=== PATIENT | female | born 1955 | race Caucasian/White ===

== ENCOUNTER → 2016-08-23 | Outpatient (CLI) | payer BC ==
[~2016-08-23] MED LIST: ACHD5005 PO; ASPI-586 PO; BUPR-42 PO; CATHETER FLUSH 10 ML SYR IV PRN; CLIN300C3 PO; DICL75TA2 PO; HYDR-3812 PO; IOHEXOL 350 MG/ML 100 ML (OMNIPAQUE 350) VIAL IV ONE; KETO10TA77 PO; NS 100 ML (IVPB) BAG IV ONE; SERT100T8 PO; SERT25TA PO; SULF-222 PO; TRAM50TA2 PO
[2016-08-23 11:42] LABS: BLOOD UREA NITROGEN 13 MG/DL (7-18); BUN/CREATININE RATIO 19; GFR ESTIMATED > 60
--- NOTE | 2016-08-23 15:40 | Diagnostic Imaging Report ---
PROCEDURE: CT chest with contrast only. TECHNIQUE: Multiple contiguous axial images were obtained through the chest after administration of intravenous contrast. INDICATION: Followup pulmonary nodules. COMPARISON: CT chest of 11/04/2015 and 07/15/2015. FINDINGS: Lungs and airway: No endoluminal lesion in the trachea or central bronchi. No pulmonary mass or consolidation. Right apical subpleural nodule has a more linear configuration and measures approximately 4 mm in size on today's examination. Left lower lobe 5 mm nodule has not significantly changed. No new indeterminate pulmonary nodules. Calcified left lower lobe pulmonary granulomas are similar. Pleura: No pleural effusion or pneumothorax. Heart and mediastinum: Thyroid is normal. No supraclavicular or axillary lymphadenopathy. No mediastinal, hilar, or juxtaphrenic lymphadenopathy. Heart is normal in size without pericardial effusion. Calcified left hilar lymph nodes are unchanged and compatible with remote granulomatous infection. Normal caliber thoracic aorta. Upper abdomen: Cholecystectomy. Hypoattenuation of the liver which could be seen with hepatic steatosis. No acute abnormality in the upper abdomen. Musculoskeletal: No concerning focal osseous lesions in the thorax. IMPRESSION: 1. Right apical pulmonary nodule is more linear in configuration and likely represents a focus of subpleural atelectasis. Noncalcified left lower lobe pulmonary nodule is unchanged at 5 mm, and stable since 07/15/2015 examination. Given stability of greater than one year and small size, these nodules require no additional dedicated followup imaging. 2. Remote granulomatous infection. Dictated by: Dictated on workstation # [id number]
--- NOTE | 2016-08-24 10:06 | Diagnostic Imaging Report ---
Bilateral screening mammogram The current study was also evaluated with a Computer Aided Detection (CAD) system. Indication: Screening. No current complaints stated on the questionnaire. COMPARISON: 03/01/10. FINDINGS: The breasts are composed of scattered fibroglandular densities. A 7 mm medial left breast nodule stable from 2009 is seen compatible with benign etiology. No mass, architectural distortion or suspicious cluster of calcifications seen. Allowing for technique and positional differences, no suspicious change is seen. IMPRESSION: No significant change. ACR BI-RADS Category 2: Benign findings. Result letter will be mailed to the patient. Note: At least 10% of breast cancer is not imaged by mammography. Dictated by: Dictated on workstation # [id number]
== END ==
LOC: RAD 10:57
PROVIDERS: ATTEND Family Medicine
DX: Z12.31 Encounter for screening mammogram for malignant neoplasm of breast (principal); R91.1 Solitary pulmonary nodule
CPT/HCPCS: 36415; 71260; 77067; 82565; 84520

== ENCOUNTER → 2017-01-28 | Outpatient (CLI) | payer BC ==
[~2017-01-28] MED LIST changes: -CATHETER FLUSH 10 ML SYR IV PRN; -IOHEXOL 350 MG/ML 100 ML (OMNIPAQUE 350) VIAL IV ONE; -NS 100 ML (IVPB) BAG IV ONE
--- NOTE | 2017-01-28 09:20 | Diagnostic Imaging Report ---
3 views of the lumbar spine. INDICATION: Back pain. FINDINGS: There is straightening of the lordotic curvature. The vertebral body heights are preserved. There is significant disc height loss at L4/L5 and L5/S1 level. Multilevel anterior osteophytes seen. No posterior osteophytes are identified. There is vacuum phenomenon at L4/L5 and L5/S1. There is a vacuum phenomenon and mild degenerative changes at the SI joints. Surgical clips in the upright abdomen seen. IMPRESSION: Prominent degenerative changes in the lower lumbar spine. Dictated by: Dictated on workstation # [id number]
--- NOTE | 2017-01-28 09:29 | Diagnostic Imaging Report ---
EXAMINATION: Three views of the sacroiliac joints. INDICATION: Back pain. FINDINGS: There are prominent degenerative changes in the lower lumbar spine discs with vacuum phenomenon. The SI joints demonstrate degenerative changes, worse on the right side, with vacuum phenomenon and sclerotic changes. No fracture or dislocation is seen. IMPRESSION: Degenerative changes in the SI joints, more on the right side. Dictated by: Dictated on workstation # [id number]
== END ==
LOC: RAD 08:26
PROVIDERS: ATTEND Family Medicine
DX: M47.816 Spondylosis without myelopathy or radiculopathy, lumbar region (principal); M47.818 Spondylosis without myelopathy or radiculopathy, sacral and sacrococcygeal region
CPT/HCPCS: 72100; 72202

== ENCOUNTER → 2017-08-23 | Outpatient (CLI) | payer BC ==
[~2017-08-23] MED LIST changes: -HYDR-3812 PO
--- NOTE | 2017-08-23 13:40 | Diagnostic Imaging Report ---
INDICATION: Routine screening. Comparison is made with prior study from 08/23/2016. The current study was also evaluated with a Computer Aided Detection (CAD) system. FINDINGS: Scattered fibroglandular densities are identified bilaterally. Benign nodular density in the medial left breast is stable. No spiculated mass or malignant-appearing microcalcifications are seen. The axillae are unremarkable. IMPRESSION: No mammographic features suspicious for malignancy are identified. ACR BI-RADS Category 2: Benign findings. Result letter will be mailed to the patient. Note: At least 10% of breast cancer is not imaged by mammography. Dictated by: Dictated on workstation # [id number]
--- NOTE | 2017-08-23 15:27 | Diagnostic Imaging Report ---
INDICATION: Family history of ovarian carcinoma. TECHNIQUE: Multiple real-time grayscale images were obtained in the pelvis in various projections endovaginally. FINDINGS: The uterus measures 8.0 x 4.7 cm. There appears to be a fibroid in the anterior myometrium adjacent to the endometrium measuring 1.9 cm in diameter. This does abut the fundal endometrium and obscures the endometrium. There also appears to be a hyperechoic mass in the posterior myometrium approximately 1.6 cm in diameter suggestive of a second fibroid. Endometrium is 4 mm in thickness. The right and left ovaries are nonvisualized. No adnexal mass or free fluid is seen. IMPRESSION: Fibroid uterus with fibroids obscuring the fundal endometrium. No other significant abnormality is seen. Dictated by: Dictated on workstation # [id number]
== END ==
LOC: RAD 09:47
PROVIDERS: ATTEND Family Medicine
DX: Z12.31 Encounter for screening mammogram for malignant neoplasm of breast (principal); D25.9 Leiomyoma of uterus, unspecified; Z80.41 Family history of malignant neoplasm of ovary
CPT/HCPCS: 76830; 76856; 77067

== ENCOUNTER 2021-04-30 11:58 | Emergency (ER) | payer BC ==
[~2021-04-30] VITALS: Ht 165 cm; Wt 190.0 kg
[~2021-04-30 11:58] MED LIST changes: +SERT-414 PO
[2021-04-30] MEDS ORDERED: LACTATED RINGERS 1,000 ML IV ONE (12:15)
--- NOTE | 2021-04-30 12:54 | ED General ---
General Stated Complaint: COVID POSITIVE/SOB Source of Information: Patient History of Present Illness Date Seen by Provider: Apr 30, 2021 Time Seen by Provider: 12:10 Initial Comments PT AND ARRIVE VIA POV FROM HOME BOTH ARE BEING SEEN FOR SAME BOTH REPORT THEY HAD POSITIVE HOME COVID-19 TESTS THIS WEEK, NEITHER HAVE HAD COVID-19 VACCINE PT STATES SHE BEGAN GETTING SICK ON SATURDAY, STARTED GETTING SICK ON SATURDAY PT C/O FEVER UP TO 100 C/O HEADACHE C/O BODY ACHES C/O NON-PRODUCTIVE COUGH C/O SHORTNESS OF BREATH C/O DECREASED TASTE C/O FATIGUE AND GENERALIZED WEAKNESS NO NAUSEA/VOMITING/DIARRHEA PT HAS COPD AND SMOKES 2 PPD, IN ADDITION TO SMOKING MARIJUANA HAVE NOT SOUGHT CARE UNTIL TODAY HAVE NOT TAKEN ANYTHING FOR SYMPTOMS PCP: WAS DR. YEE, HAS NOT ESTABLISHED WITH NEW DR SINCE SHE LEFT THE PRACTICE. Allergies and Home Medications Allergies Coded Allergies: No Known Drug Allergies (Unverified , 04/26/13) Patient Home Medication List Bupropion HCl (Wellbutrin Xl) 150 Mg Tab.er.24h, 150 MG PO DAILY, (Reported) Entered as Reported by: JASWANT RODRIGUEZ on 11/23/15925 Hydrocodone Bit/Acetaminophen (Lortab 5 Mg Tablet) 1 Each Tablet, 1-2 EACH PO Q4H PRN for PAIN Prescribed by: MARTHA PRICE on 12/02/15 1157 Sertraline HCl (Sertraline HCl) 100 Mg Tablet, 100 MG PO DAILY, (Reported) Entered as Reported by: JASWANT RODRIGUEZ on 11/23/15925 Tramadol Hcl (Tramadol Hcl) 50 Mg Tablet, 50 MG PO Q8H PRN for PAIN, (Reported) Entered as Reported by: LUPE RAMIREZ on 11/23/141941 Review of Systems Review of Systems Constitutional: see HPI, fever, malaise, weakness EENTM: see HPI Respiratory: see HPI, cough, short of breath Cardiovascular: no symptoms reported; No chest pain Gastrointestinal: no symptoms reported; No abdominal pain, No diarrhea, No nausea, No vomiting Genitourinary: no symptoms reported Musculoskeletal: see HPI (BODY ACHES) Skin: no symptoms reported Psychiatric/Neurological: See HPI, Headache Hematologic/Lymphatic: No Symptoms Reported Immunological/Allergic: no symptoms reported Past Jrawrte-Iosvhp-Kxkgwh Hx Patient Social History Tobacco Use?: Yes Substance use?: Yes Substance type: Marijuana Alcohol Use?: Yes Alcohol Frequency: Several times a month Immunizations Up To Date Tetanus Booster (TDap): More than 5yrs Past Medical History Surgeries: Yes Gallbladder, Tubal Ligation Respiratory: Yes COPD Cardiac: No Neurological: No Reproductive Disorders: No CHIPPER History: Menopausal Genitourinary: No Gastrointestinal: Yes (S/-P ELIOT) Gall Bladder Disease Musculoskeletal: Yes Chronic Back Pain Endocrine: No HEENT: No Cancer: No Psychosocial: Yes Anxiety, Depression Integumentary: No Blood Disorders: No Physical Exam Vital Signs Capillary Refill : Height, Weight, BMI Height: 5'5.00" Weight: 223lbs. 0.0oz. [id number]; 37.1 BMI Method: Focused Exam Lactate Level 04/30/21 12:39: Lactic Acid Level 1.60 Lactic Acid Level Laboratory Tests Test 04/30/21 12:39 Lactic Acid Level 1.60 MMOL/L (0.50-2.00) Progress/Results/Core Measures Suspected Sepsis SIRS Temperature: Pulse: Respiratory Rate: Laboratory Tests 04/30/21 12:39: White Blood Count 4.8 Blood Pressure / Mean: 04/30/21 12:39: Lactic Acid Level 1.60 Laboratory Tests 04/30/21 12:39: Platelet Count 134 04/30/21 13:35: Creatinine 0.64, INR Comment 0.9, Total Bilirubin 0.3 Results/Orders Lab Results Laboratory Tests Test 04/30/21 12:12 04/30/21 12:39 04/30/21 13:35 Range/Units Influenza Type A (RT-PCR) Not Detected Not Detecte Influenza Type B (RT-PCR) Not Detected Not Detecte SARS-CoV-2 RNA (RT-PCR) Detected H Not Detecte White Blood Count 4.8 4.3-11.0 10^3/uL Red Blood Count 4.34 3.80-5.11 10^6/uL Hemoglobin 13.3 11.5-16.0 g/dL Hematocrit 41 35-52 % Mean Corpuscular Volume 94 80-99 fL Mean Corpuscular Hemoglobin 31 25-34 pg Mean Corpuscular Hemoglobin Concent 33 32-36 g/dL Red Cell Distribution Width 13.5 10.0-14.5 % Platelet Count 134 130-400 10^3/uL Mean Platelet Volume 10.9 9.0-12.2 fL Immature Granulocyte % (Auto) 0 % Neutrophils (%) (Auto) 69 42-75 % Lymphocytes (%) (Auto) 24 12-44 % Monocytes (%) (Auto) 7 0-12 % Eosinophils (%) (Auto) 0 0-10 % Basophils (%) (Auto) 0 0-10 % Neutrophils # (Auto) 3.3 1.8-7.8 10^3/uL Lymphocytes # (Auto) 1.1 1.0-4.0 10^3/uL Monocytes # (Auto) 0.3 0.0-1.0 10^3/uL Eosinophils # (Auto) 0.0 0.0-0.3 10^3/uL Basophils # (Auto) 0.0 0.0-0.1 10^3/uL Immature Granulocyte # (Auto) 0.0 0.0-0.1 10^3/uL Percent Immature Platelet Fraction 4.7 0.0-7.6 % Erythrocyte Sedimentation Rate 18 0-30 MM/HR Lactic Acid Level 1.60 0.50-2.00 MMOL/L Prothrombin Time 12.4 12.2-14.7 SEC INR Comment 0.9 0.8-1.4 Activated Partial Thromboplast Time 36 H 24-35 SEC D-Dimer 0.39 0.00-0.49 UG/ML Sodium Level 137 135-145 MMOL/L Potassium Level 3.5 L 3.6-5.0 MMOL/L Chloride Level 103 98-107 MMOL/L Carbon Dioxide Level 24 21-32 MMOL/L Anion Gap 10 5-14 MMOL/L Blood Urea Nitrogen 10 7-18 MG/DL Creatinine 0.64 0.60-1.30 MG/DL Estimat Glomerular Filtration Rate 93 BUN/Creatinine Ratio 16 Glucose Level 97 70-105 MG/DL Calcium Level 8.2 L 8.5-10.1 MG/DL Corrected Calcium 8.5 8.5-10.1 MG/DL Magnesium Level 1.9 1.6-2.4 MG/DL Total Bilirubin 0.3 0.1-1.0 MG/DL Aspartate Amino Transf (AST/SGOT) 25 5-34 U/L Alanine Aminotransferase (ALT/SGPT) 11 0-55 U/L Alkaline Phosphatase 80 40-136 U/L Lactate Dehydrogenase 279 H 125-220 U/L Total Creatine Kinase 88 29-168 U/L Creatine Kinase MB 1.2 <6.6 NG/ML Myoglobin 51.8 10.0-92.0 NG/ML Troponin I < 0.028 <0.028 NG/ML C-Reactive Protein High Sensitivity 4.07 H 0.00-0.50 MG/DL B-Type Natriuretic Peptide 12.7 <100.0 PG/ML Total Protein 6.0 L 6.4-8.2 GM/DL Albumin 3.6 3.2-4.5 GM/DL Procalcitonin 0.03 <0.10 NG/ML My Orders Orders - KAIA LEARY DO Ed Iv/Invasive Line Start (04/30/21 12:10) Ekg Tracing (04/30/21 12:10) O2 (04/30/21 12:10) Monitor-Rhythm Ecg Trace Only (04/30/21 12:10) Bnp Edwar (04/30/21 12:10) Cbc With Automated Diff (04/30/21 12:10) Comprehensive Metabolic Panel (04/30/21 12:10) Creatine Kinase (04/30/21 12:10) Creatine Kinase Mb (04/30/21 12:10) Hs C Reactive Protein (04/30/21 12:10) Lactic Acid Analyzer (04/30/21 12:10) Magnesium (04/30/21 12:10) Procalcitonin (Pct) (04/30/21 12:10) Protime With Inr (04/30/21 12:10) Partial Thromboplastin Time (04/30/21 12:10) Ua Culture If Indicated (04/30/21 12:10) Blood Culture (04/30/21 12:10) Erythrocyte Sedimentation Rate (04/30/21 12:10) Myoglobin Serum (04/30/21 12:10) Troponin I Edwar (04/30/21 12:10) Chest 1 View, Ap/Pa Only (04/30/21 12:10) Fibrin Degradation Products (04/30/21 12:10) LDH (04/30/21 12:10) Urine Culture (04/30/21 12:10) Ed Iv/Invasive Line Start (04/30/21 12:10) Ed Iv/Invasive Line Start (04/30/21 12:10) Vital Signs Adult Sepsis Patie Q15M (04/30/21 12:10) O2 (04/30/21 12:10) Remove Rings In Anticipation O (04/30/21 12:10) Ed Iv/Invasive Line Start (04/30/21 12:10) Lactated Ringers (Lr 1000 Ml Iv Solution (04/30/21 12:15) Covid-19 External Lab Results (04/30/21 12:15) Covid 19 Inhouse Test (04/30/21 12:40) Influenza A And B By Pcr (04/30/21 12:40) Isolation Central Supply Req (04/30/21 12:40) Dexamethasone Injection (Decadron Inje (04/30/21 12:45) Bamlanivimab (Non Form) (Bamlanivimab (N (04/30/21 15:00) Epinephrine 1 Mg Injection (Adrenalin I (04/30/21 15:00) Diphenhydramine Injection (Benadryl Inje (04/30/21 15:00) Ondansetron Injection (Zofran Injectio (04/30/21 15:00) Acetaminophen Tablet (Tylenol Tablet) (04/30/21 15:00) Medications Given in ED Current Medications Medications Dose Ordered Sig/Jj Route Start Time Stop Time Status Last Admin Dose Admin Lactated Ringer's 1,000 ml @ 0 mls/hr Q0M ONCE IV 04/30/21 12:15 04/30/21 12:16 DC 04/30/21 12:39 1,000 MLS/HR Vital Signs/I&O Capillary Refill : Diagnostic Imaging Comments CXR--PER RADIOLOGIST REPORT AT 1342 Findings: No focal alveolar consolidation, body habitus limits detail. Heart borders and diaphragms visualized, upper limits heart size stable. There is some scattered calcified benign granulomatous residua chronic. Impression: Limited by body habitus, no focal infiltrate, effusion, pneumothorax or change identified. Benign left lower lobe calcified granuloma, chronic. Reviewed: Reviewed by Me Departure Impression Primary Impression: COVID-19 virus infection Additional Impression: COPD (chronic obstructive pulmonary disease) Disposition: 01 HOME, SELF-CARE Condition: Stable Departure-Patient Inst. Decision time for Depature: 14:45 Referrals: CHRISTEL YEE MD (PCP/Family) Primary Care Physician Patient Instructions: Chronic Obstructive Pulmonary Disease (COPD), Including Emphysema, COVID-19 (DC), Preventing the Spread of an Infectious Disease, Bamlanivimab and Etesevimab FDA Fact Sheet Add. Discharge Instructions: TYLENOL AND MOTRIN NEEDED FOR PAIN OR FEVER USE YOUR INHALER OR NEBULIZER PRESCRIBED USE HOME OXYGEN NEEDED MUCINEX DM FOR COUGH LOTS OF CLEAR LIQUIDS QUARANTINE FOR AN ADDITIONAL 10 DAYS RETURN TO ER IF SYMPTOMS WORSEN Scripts Benzonatate (TESSALON PERLES) 100 Mg Capsule 200 MG PO TID, #50 CAP Prov: KAIA LEARY DO 04/30/21 Dexamethasone (Decadron) 6 Mg Tablet 6 MG PO DAILY, #10 TAB Prov: KAIA LEARY DO 04/30/21 Doxycycline Hyclate (Doxycycline Hyclate) 100 Mg Tablet 100 MG PO BID, #20 TAB 0 Refills Prov: KAIA LEARY DO 04/30/21 KAIA LEARY DO Apr 30, 2021 12:54
[2021-04-30 12:58] LABS: BASOPHILS % (AUTO) 0 % (0-10); EOSINOPHILS % (AUTO) 0 % (0-10); MEAN CORPUSCULAR HEMOGLOBIN 31 pg (25-34); MEAN CORPUSCULAR HGB CONC 33 g/dL (32-36)
[2021-04-30 12:59] LABS: HEMATOCRIT 41 % (35-52); HEMOGLOBIN 13.3 g/dL (11.5-16.0); LYMPHOCYTES # (AUTO) 1.1 10^3/uL (1.0-4.0); LYMPHOCYTES % (AUTO) 24 % (12-44); MEAN CORPUSCULAR VOLUME 94 fL (80-99); MEAN PLATELET VOLUME 10.9 fL (9.0-12.2); MONOCYTES # (AUTO) 0.3 10^3/uL (0.0-1.0); MONOCYTES % (AUTO) 7 % (0-12); NEUTROPHILS # (AUTO) 3.3 10^3/uL (1.8-7.8); NEUTROPHILS % (AUTO) 69 % (42-75); PLATELET COUNT 134 10^3/uL (130-400); WHITE BLOOD COUNT 4.8 10^3/uL (4.3-11.0)
[2021-04-30 13:20] LABS: ERYTHROCYTE SEDIMENTATION RATE 18 MM/HR (0-30)
--- NOTE | 2021-04-30 13:21 | Diagnostic Imaging Report ---
Indication: COVID patient, shortness of air. Compared: 09/27/2015 Findings: No focal alveolar consolidation, body habitus limits detail. Heart borders and diaphragms visualized, upper limits heart size stable. There is some scattered calcified benign granulomatous residua chronic. Impression: Limited by body habitus, no focal infiltrate, effusion, pneumothorax or change identified. Benign left lower lobe calcified granuloma, chronic. Dictated by: Dictated on workstation # [id number]
[2021-04-30 13:58] LABS: ALBUMIN 3.6 GM/DL (3.2-4.5); CHLORIDE 103 MMOL/L (98-107); POTASSIUM 3.5 MMOL/L (3.6-5.0); SODIUM 137 MMOL/L (135-145)
[2021-04-30 13:59] LABS: CALCIUM 8.2 MG/DL (8.5-10.1); FIBRIN DEGRADATION PRODUCTS 0.39 UG/ML (0.00-0.49); INR 0.9 (0.8-1.4); PROTHROMBIN TIME PATIENT 12.4 SEC (12.2-14.7)
[2021-04-30 14:00] LABS: GLUCOSE 97 MG/DL (70-105)
[2021-04-30 14:01] LABS: CARBON DIOXIDE 24 MMOL/L (21-32)
[2021-04-30 14:02] LABS: BILIRUBIN,TOTAL 0.3 MG/DL (0.1-1.0)
[2021-04-30 14:04] LABS: ALKALINE PHOSPHATASE 80 U/L (40-136); CREATININE SERUM 0.64 MG/DL (0.60-1.30); GFR ESTIMATED 93
[2021-04-30 14:05] LABS: BUN/CREATININE RATIO 16
[2021-04-30 14:07] LABS: ALANINE AMINOTRANSFERASE 11 U/L (0-55); MAGNESIUM 1.9 MG/DL (1.6-2.4)
[2021-04-30 14:08] LABS: CREATINE KINASE 88 U/L (29-168)
[2021-04-30 14:17] LABS: CREATINE KINASE MB 1.2 NG/ML (<6.6)
[2021-04-30] MEDS ORDERED: EPINEPHrine INJECTION 1 MG/ML AMP IM PRN (15:00)
[2021-04-30] MEDS ORDERED: BAMLANIVIMAB 700 MG/ETESEVIMAB 1,400 MG IN NS IV ONE ×3 (15:00)
[2021-04-30] MEDS ORDERED: ONDANSETRON 4 MG/2 ML (SDV) Z0FRAN IV PRN (15:00)
[2021-04-30] MEDS ORDERED: diphenhydrAMINE 50 MG/ML INJ (BENADRYL) IV PRN (15:00)
[2021-04-30] MEDS ORDERED: ACETAMINOPHEN 500 MG TAB (TYLENOL) PO PRN (15:00)
[2021-04-30] MEDS ORDERED: DEXA6TAB6 PO (15:05)
[2021-04-30] MEDS ORDERED: BENZ100C18 PO (15:05)
[2021-04-30] MEDS ORDERED: DOXY100T2 PO (15:05)
[2021-04-30] MEDS ORDERED: BENZONATATE 100 MG (TESSALON) CAPSULE PO SCH (16:15)
[2021-04-30] MEDS ORDERED: IBUPROFEN 800 MG (MOTRIN) TAB PO ONE (16:15)
[2021-04-30] MEDS ORDERED: ACETAMINOPHEN 500 MG TAB (TYLENOL) PO ONE (16:15)
[2021-04-30 17:30] VITALS: BP 118/64
[2021-04-30 17:33] LABS: BILIRUBIN,URINE NEGATIVE (NEGATIVE); CLARITY,URINE CLEAR; COLOR,URINE YELLOW; GLUCOSE, URINE (UA) NEGATIVE (NEGATIVE); KETONES,URINE TRACE (NEGATIVE); LEUKOCYTE ESTERASE ,URINE NEGATIVE (NEGATIVE); NITRITE,URINE NEGATIVE (NEGATIVE); PH,URINE 5.5 (5-9); PROTEIN,URINE NEGATIVE (NEGATIVE)
[2021-04-30 17:40] LABS: BACTERIA,URINE NEGATIVE /HPF; WBC,URINE RARE /HPF
== END 2021-04-30 17:30 | disposition home or self-care (01) ==
LOC: EDUNIT# 11:58 → ER 12:00
DX: U07.1 COVID-19 (principal); J44.9 Chronic obstructive pulmonary disease, unspecified; F41.9 Anxiety disorder, unspecified; F32.9 Major depressive disorder, single episode, unspecified; F17.210 Nicotine dependence, cigarettes, uncomplicated; Z79.899 Other long term (current) drug therapy
CPT/HCPCS: 36415; 71045; 80053; 81000; 82550; 82553; 83605; 83615; 83735; 83874; 83880; 84145; 84484; 85025; 85379; 85610; 85652; 85730; 86141; 87040; 87088; 87636; 93005; 93041

== ENCOUNTER 2022-10-18 11:28 | Inpatient (IN) | payer BC, MEDICARE ==
[~2022-10-18] VITALS: Ht 165 cm; Wt 112.3 kg
[~2022-10-18 11:28] MED LIST changes: +BENZ100C18 PO; +DEXA6TAB6 PO; +DOXY100T2 PO
[2022-10-18] MEDS ORDERED: NS IV 1000 ML 1,000 ML IV STA ×2 (11:56→12:25)
[2022-10-18] MEDS ORDERED: CEFEPIME INJECTION 2,000 MG in NS (IVPB) 50 ML IV ONE (12:00)
[2022-10-18 12:07] LABS: BASOPHILS # (AUTO) 0.1 10^3/uL (0.0-0.1); BASOPHILS % (AUTO) 0 % (0-10); EOSINOPHILS % (AUTO) 0 % (0-10); HEMATOCRIT 38 % (35-52); HEMOGLOBIN 12.7 g/dL (11.5-16.0); LYMPHOCYTES # (AUTO) 2.1 10^3/uL (1.0-4.0); LYMPHOCYTES % (AUTO) 15 % (12-44); MEAN CORPUSCULAR HEMOGLOBIN 30 pg (25-34); MEAN CORPUSCULAR HGB CONC 33 g/dL (32-36); MEAN CORPUSCULAR VOLUME 91 fL (80-99); MEAN PLATELET VOLUME 9.4 fL (9.0-12.2); MONOCYTES # (AUTO) 1.1 10^3/uL (0.0-1.0); MONOCYTES % (AUTO) 8 % (0-12); NEUTROPHILS # (AUTO) 10.5 10^3/uL (1.8-7.8); NEUTROPHILS % (AUTO) 74 % (42-75); PLATELET COUNT 349 10^3/uL (130-400); WHITE BLOOD COUNT 14.2 10^3/uL (4.3-11.0)
[2022-10-18 12:23] LABS: PROTHROMBIN TIME PATIENT 13.1 SEC (12.2-14.7)
[2022-10-18 12:24] LABS: ALBUMIN 3.4 GM/DL (3.2-4.5); POTASSIUM 3.2 MMOL/L (3.6-5.0)
--- NOTE | 2022-10-18 12:25 | ED General ---
General Chief Complaint: Fever-Adult/Adol Stated Complaint: FEVER | SOB Nursing Triage Note: Pt here with fever and soa x 1 wk; pt also reports cough. 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 Source of Information: Patient, Family Exam Limitations: No Limitations History of Present Illness Date Seen by Provider: Oct 18, 2022 Time Seen by Provider: 11:48 Initial Comments Patient is a 66-year-old female who presents to the emergency room with a chief complaint of feeling short of breath x1 week. She states she started getting sick about a week ago, subjective fever. She has a cough productive of white "foamy" sputum. She denies hemoptysis. She has been intermittently taking Tylenol at home last dose was yesterday. Decreased appetite. She states she w ent about 5 days without a bowel movement due to no food. She states she is drinking lots of water. She smokes approximately a pack a day when she feels healthy. Her has home oxygen and she has been using his over the course of the last week. She was 86% on room air on arrival. She is not nauseous. No abdominal pain. She complains of right chest pain especially with deep breaths. She has occasional runny nose. No sore throat or earache. No rashes. No painful urination or increased urinary frequency. No swelling in her legs or calf tenderness reported. She occasionally has to use inhalers. She takes no daily prescribed medications other than vitamins. She feels generally weak but not lightheaded or dizzy when she stands. Timing/Duration: 1 Week Severity: Severe Associated Systoms: Chest Pain (Right-sided), Cough, Fever/Chills (Subjective), Loss of Appetite, Shortness of Air, Weakness Allergies and Home Medications Allergies Coded Allergies: No Known Drug Allergies (Unverified , 04/26/13) Patient Home Medication List Home Medication List Reviewed: Yes Aspirin (Aspirin) 81 Mg Tab.chew, 81 MG PO DAILY, (Reported) Entered as Reported by: ELVIRA WINTER on 10/18/22 5613 Last Action: Reviewed Cyclosporine (Restasis) 0.05 % Droperette, 1 DROP OU BID, (Reported) Entered as Reported by: ELVIRA WINTER on 10/18/22 6547 Last Action: Reviewed [place]-3/Dha/Epa/Fish Oil (Fish Oil 1,000 mg Softgel) 1,000 Mg (120 Mg-180 Mg) Capsule, 2 EA PO BID, (Reported) Entered as Reported by: ELVIRA WINTER on 10/18/22 1508 Last Action: Reviewed Discontinued Medications Benzonatate (Tessalon Perles) 100 Mg Capsule, 200 MG PO TID Discontinued Reason: No Longer Taking Prescribed by: KAIA LEARY on 04/30/21 150 Last Action: Discontinued Bupropion HCl (Wellbutrin Xl) 150 Mg Tab.er.24h, 150 MG PO DAILY, (Reported) Discontinued Reason: No Longer Taking Entered as Reported by: JASWANT RODRIGUEZ on 11/23/15925 Last Action: Discontinued Dexamethasone (Decadron) 6 Mg Tablet, 6 MG PO DAILY Discontinued Reason: No Longer Taking Prescribed by: KAIA LEARY on 04/30/211504 Last Action: Discontinued Doxycycline Hyclate (Doxycycline Hyclate) 100 Mg Tablet, 100 MG PO BID Discontinued Reason: No Longer Taking Prescribed by: KAIA LEARY on 04/30/211504 Last Action: Discontinued Hydrocodone Bit/Acetaminophen (Lortab 5 Mg Tablet) 1 Each Tablet, 1-2 EACH PO Q4H PRN for PAIN Discontinued Reason: No Longer Taking Prescribed by: MARTHA PRICE on 12/02/15 1157 Last Action: Discontinued Sertraline HCl (Sertraline HCl) 100 Mg Tablet, 100 MG PO DAILY, (Reported) Discontinued Reason: No Longer Taking Entered as Reported by: JASWANT RODRIGUEZ on 11/23/15925 Last Action: Discontinued Tramadol Hcl (Tramadol Hcl) 50 Mg Tablet, 50 MG PO Q8H PRN for PAIN, (Reported) Discontinued Reason: No Longer Taking Entered as Reported by: LUPE RAMIREZ on 11/23/141941 Last Action: Discontinued Review of Systems Review of Systems Constitutional: see HPI, fever, malaise, weakness EENTM: no symptoms reported Respiratory: cough, short of breath Cardiovascular: chest pain Gastrointestinal: constipation, loss of appetite Genitourinary: no symptoms reported Musculoskeletal: no symptoms reported Skin: no symptoms reported Psychiatric/Neurological: No Symptoms Reported All Other Systems Reviewed Negative Unless Noted: Yes Past Bwqqowg-Coomhr-Vuwryh Hx Immunizations Up To Date Tetanus Booster (TDap): More than 5yrs Past Medical History Surgeries: Yes Gallbladder, Tubal Ligation Respiratory: Yes COPD Cardiac: No Neurological: No Reproductive Disorders: No 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 0.0oz. [id number]; 35.00 BMI Method: General Appearance: No Apparent Distress, WD/WN Eyes: Bilateral Eye Normal Inspection, Bilateral Eye PERRL, Bilateral Eye EOMI HEENT: PERRL/EOMI, Other (Dry oral mucosa) Neck: Normal Inspection Respiratory: No Accessory Muscle Use, No Respiratory Distress, Crackles (Crackles bilateral bases, no expiratory wheeze or respiratory distress) Cardiovascular: Regular Rate, Rhythm, Normal Peripheral Pulses, Tachycardia (130) Gastrointestinal: Non Tender, Soft Extremity: Normal Capillary Refill, Normal Inspection, Normal Range of Motion, Non Tender, No Calf Tenderness, Slow Capillary Refill (3 sec) Neurologic/Psychiatric: Alert, Oriented x3, No Motor/Sensory Deficits, Normal Mood/Affect Skin: warm/dry, pallor Focused Exam Sepsis Stage: Sepsis Possible Source: Pulmonary Lactate Level 10/18/22 11:55: Lactic Acid Level 2.29*H 10/18/22 14:28: Lactic Acid Level 1.21 Time of Focused Exam: 12:25 Respiratory: Crackles Cardiovascular: Tachycardia Capillary Refill: Less Than 3 Seconds Peripheral Pulses: 1+ Radial Pulses (R), 1+ Radial Pulses (L) Skin: warm/dry, pallor Lactic Acid Level Within 3hrs of presentation: Admin fluids, Admin ABX, Blood cultures prior to ABX's, Focus exam, Lactate level Progress/Results/Core Measures Suspected Sepsis Recent Fever Within 48 Hours: Yes Infection Criteria Present: Suspected New Infection New/Unexplained Altered Menta: No SIRS Temperature: Pulse: 129 Respiratory Rate: 22 Laboratory Tests 10/19/22 04:24: White Blood Count 11.8H 10/20/22 04:02: White Blood Count 11.6H 10/21/22 03:02: White Blood Count 15.2H Blood Pressure 100 /70 Mean: 80 10/18/22 11:55: Lactic Acid Level 2.29*H 10/18/22 14:28: Lactic Acid Level 1.21 Laboratory Tests 10/18/22 11:55: INR Comment 1.0 10/19/22 04:24: Creatinine 0.59L, Platelet Count 318, Total Bilirubin 0.3 10/20/22 04:02: Creatinine 0.52L, Platelet Count 377, Total Bilirubin 0.3 10/21/22 03:02: Creatinine 0.56L, Platelet Count 411H, Total Bilirubin 0.3 Results/Orders Lab Results Laboratory Tests Test 10/20/22 04:02 10/21/22 03:02 Range/Units White Blood Count 11.6 H 15.2 H 4.3-11.0 10^3/uL Red Blood Count 3.46 L 3.36 L 3.80-5.11 10^6/uL Hemoglobin 10.2 L 10.2 L 11.5-16.0 g/dL Hematocrit 32 L 31 L 35-52 % Mean Corpuscular Volume 91 91 80-99 fL Mean Corpuscular Hemoglobin 30 30 25-34 pg Mean Corpuscular Hemoglobin Concent 32 33 32-36 g/dL Red Cell Distribution Width 14.6 H 14.6 H 10.0-14.5 % Platelet Count 377 411 H 130-400 10^3/uL Mean Platelet Volume 8.8 L 8.8 L 9.0-12.2 fL Immature Granulocyte % (Auto) 2 1 % Neutrophils (%) (Auto) 75 81 H 42-75 % Lymphocytes (%) (Auto) 17 12 12-44 % Monocytes (%) (Auto) 6 6 0-12 % Eosinophils (%) (Auto) 0 0 0-10 % Basophils (%) (Auto) 0 0 0-10 % Neutrophils # (Auto) 8.7 H 12.3 H 1.8-7.8 10^3/uL Lymphocytes # (Auto) 1.9 1.9 1.0-4.0 10^3/uL Monocytes # (Auto) 0.7 0.9 0.0-1.0 10^3/uL Eosinophils # (Auto) 0.0 0.0 0.0-0.3 10^3/uL Basophils # (Auto) 0.0 0.0 0.0-0.1 10^3/uL Immature Granulocyte # (Auto) 0.2 H 0.2 H 0.0-0.1 10^3/uL Sodium Level 139 139 135-145 MMOL/L Potassium Level 3.4 L 3.8 3.6-5.0 MMOL/L Chloride Level 109 H 111 H 98-107 MMOL/L Carbon Dioxide Level 21 20 L 21-32 MMOL/L Anion Gap 9 8 5-14 MMOL/L Blood Urea Nitrogen 6 L 8 7-18 MG/DL Creatinine 0.52 L 0.56 L 0.60-1.30 MG/DL Estimat Glomerular Filtration Rate 103 101 BUN/Creatinine Ratio 12 14 Glucose Level 121 H 119 H 70-105 MG/DL Calcium Level 8.5 8.6 8.5-10.1 MG/DL Corrected Calcium 9.4 9.4 8.5-10.1 MG/DL Magnesium Level 1.8 2.3 1.6-2.4 MG/DL Total Bilirubin 0.3 0.3 0.1-1.0 MG/DL Aspartate Amino Transf (AST/SGOT) 18 38 H 5-34 U/L Alanine Aminotransferase (ALT/SGPT) 13 23 0-55 U/L Alkaline Phosphatase 74 106 40-136 U/L Total Protein 5.4 L 5.7 L 6.4-8.2 GM/DL Albumin 2.9 L 3.0 L 3.2-4.5 GM/DL My Orders Orders - CALVIN COLON MD Sputum Culture (10/18/22 11:56) Medications Given in ED Vital Signs/I&O 10/20/22 10/20/22 10/20/22 10/20/22 22:00 22:26 22:28 23:00 Pulse 88 84 Resp 27 27 B/P (MAP) 98/55 (69) 98/53 (68) Pulse Ox 90 94 94 90 O2 Delivery Nasal Cannula Nasal Cannula Nasal Cannula Nasal Cannula O2 Flow Rate 3.00 3.00 3.00 3.00 10/21/22 10/21/22 10/21/2218/23 00:00 00:00 00:00 01:00 Pulse 79 79 89 Resp 24 31 B/P (MAP) 97/65 (76) 107/69 (82) Pulse Ox 91 89 90 O2 Delivery Nasal Cannula Nasal Cannula Nasal Cannula O2 Flow Rate 3.00 3.00 3.00 10/21/22 10/21/22 10/21/22 10/21/22 02:00 02:03 03:00 04:00 Pulse 77 112 Resp 24 24 B/P (MAP) 86/46 (59) 100/69 (79) Pulse Ox 90 96 87 92 O2 Delivery Nasal Cannula Nasal Cannula Nasal Cannula Nasal Cannula O2 Flow Rate 3.00 3.00 3.00 4.00 10/21/22 10/21/22 10/21/22 10/21/22 04:00 04:35 05:00 05:15 Pulse 85 85 82 Resp 30 27 B/P (MAP) 95/69 (78) 95/69 Pulse Ox 91 90 O2 Delivery Nasal Cannula Nasal Cannula Nasal Cannula O2 Flow Rate 3.00 3.00 4.00 10/21/22 10/21/22 10/21/22 10/21/22 06:00 07:00 07:00 07:30 Temp 36.6 Pulse 70 90 85 Resp 27 B/P (MAP) 110/73 (85) 133/84 (108) Pulse Ox 92 96 O2 Delivery Nasal Cannula Nasal Cannula Nasal Cannula O2 Flow Rate 4.00 4.00 4.00 10/21/22 10/21/22 10/21/22 10/21/22 07:31 07:39 07:40 08:00 Pulse 98 Resp 27 B/P (MAP) 127/83 (98) Pulse Ox 90 88 O2 Delivery Nasal Cannula Nasal Cannula Nasal Cannula Nasal Cannula O2 Flow Rate 4.00 4.00 4.00 4.00 Capillary Refill : Less Than 3 Seconds Blood Pressure Mean: 80 Progress Note : Time: 12:57 Progress Note Patient seen and evaluated by me. Evaluation today includes physical exam, "sepsis" protocol to include CBC, Chem-12, lactic acid, blood cultures, coags, chest x-ray. Pertinent physical exam findings well-developed well-nourished 66-year-old female in mild distress due to shortness of breath and generalized malaise and fatigue. She has crackles at the bases bilaterally with no significant distress. Minimal conversational dyspnea. She is tachycardic in the 120s. Hypoxic in the mid 80s at presentation satting 92% on 4 L. Capillary refill is 2 to 3 seconds. Abdomen is soft. No lower extremity edema or calf tenderness. She is awake alert and oriented without focal neurologic deficits. Differential diagnosis based on history and physical exam, pneumonia, sepsis. Labs independently interpreted and reviewed by me, chest x-ray reviewed by me. CBC shows a white count of 14.2, hemoglobin of 12.7 hematocrit of 38 platelet count of 349. Lactic acid is 2.29. Sodium is 139 potassium of 3.2 chloride of 100 bicarb of 29 BUN of 8 creatinine of 0.62 serum glucose 140. Coags are within normal limits. Chest x-ray shows right middle and lower lobe infiltrates. Patient is treated with IV fluids and cefepime. She is feeling better with fluids. Due to her hypoxia, tachycardia and pneumonia will admit with sepsis to cardiac stepdown. Case was discussed with Dr. Hubbard who is on for the hospitalist service and accepts the patient for admission. Diagnostic Imaging Diagonstic Imaging: Xray Plain Films/CT/US/NM/MRI: chest Comments CXR - independent review by me - RLL infiltrate [facility]. [place], [place] NAME: DEB MARTIN [facility] REC#: [id number] PT STATUS: REG ER : 1955 PHYSICIAN: CALVIN COLON MD ADMIT DATE: 10/18/22/ER Draft Date of Exam:10/18/22 CHEST 1 VIEW, AP/PA ONLY EXAMINATION: Chest 1 view HISTORY: SOB/hypoxia COMPARISON: 04/30/2021 FINDINGS: Heart size and pulmonary vasculature are normal. There is a small right pleural effusion. There are patchy airspace opacities within the right midlung and lung base. Mild background interstitial opacities within the lower lungs. No pneumothorax. The osseous structures are intact. IMPRESSION: 1. Patchy interstitial airspace opacities within the mid and lower lungs which can be seen with pneumonia or pulmonary edema. 2. Small right pleural effusion. Dictated on workstation # [id number] Dict: 10/18/22 1224 Trans: 10/18/22 1230 [facility] [id number] Interpreted by: NILSA DUQUE DO Electronically signed by: Counseling-Symptomatic: 3-10 Minutes Follow-up with PCP to: Discuss Further Options Departure Communication (Admissions) Time/Spoke to Admitting Phy: 12:[address] Hubbard - Hospitalist; observation to CSD Impression Primary Impression: Pneumonia Qualified Codes: J18.9 - Pneumonia, unspecified organism Disposition: ADMITTED INPATIENT Condition: Stable Admissions Decision to Admit Reason: Admit from ER (General) Decision to Admit/Date: Oct 18, 2022 Time/Decision to Admit Time: 12:45 Departure-Patient Inst. Referrals: NO,LOCAL PHYSICIAN (PCP/Family) Primary Care Physician CALVIN COLON MD Oct 18, 2022 12:25
[2022-10-18 12:26] LABS: CALCIUM 9.5 MG/DL (8.5-10.1)
[2022-10-18 12:27] LABS: TOTAL PROTEIN 6.5 GM/DL (6.4-8.2)
[2022-10-18 12:28] LABS: BILIRUBIN,TOTAL 0.3 MG/DL (0.1-1.0)
[2022-10-18 12:30] LABS: CREATININE SERUM 0.62 MG/DL (0.60-1.30)
[2022-10-18] MEDS ORDERED: VANCOMYCIN INJECTION 1,000 MG in NS (IVPB) 250 ML IV ONE (12:30)
--- NOTE | 2022-10-18 12:32 | Diagnostic Imaging Report ---
EXAMINATION: Chest 1 view HISTORY: SOB/hypoxia COMPARISON: 04/30/2021 FINDINGS: Heart size and pulmonary vasculature are normal. There is a small right pleural effusion. There are patchy airspace opacities within the right midlung and lung base. Mild background interstitial opacities within the lower lungs. No pneumothorax. The osseous structures are intact. IMPRESSION: 1. Patchy interstitial airspace opacities within the mid and lower lungs which can be seen with pneumonia or pulmonary edema. 2. Small right pleural effusion. Dictated by: Dictated on workstation # [id number]
[2022-10-18 12:44] LABS: BAND NEUTROPHILS 2 %; LYMPHOCYTES % (MANUAL) 18 %; MONOCYTES % (MANUAL) 8 %; NEUTROPHILS % (MANUAL) 72 %; RBC MORPH NORMAL
[2022-10-18 13:20] LABS: BILIRUBIN,URINE NEGATIVE (NEGATIVE); CLARITY,URINE CLEAR; COLOR,URINE YELLOW; GLUCOSE, URINE (UA) NEGATIVE (NEGATIVE); KETONES,URINE NEGATIVE (NEGATIVE); LEUKOCYTE ESTERASE ,URINE NEGATIVE (NEGATIVE); NITRITE,URINE NEGATIVE (NEGATIVE); PROTEIN,URINE TRACE (NEGATIVE)
[2022-10-18 13:28] LABS: BACTERIA,URINE TRACE /HPF; WBC,URINE RARE /HPF
[2022-10-18 14:15] VITALS: BP 124/92
[2022-10-18] MEDS ORDERED: VANCOMYCIN INJECTION 0.1 MG in NS (IVPB) 250 ML IV SCH (14:15)
[2022-10-18] MEDS ORDERED: BENZONATATE 100 MG (TESSALON) CAPSULE PO PRN (14:15)
[2022-10-18] MEDS ORDERED: ONDANSETRON 4 MG/2 ML (SDV) Z0FRAN IV PRN (14:15)
[2022-10-18] MEDS ORDERED: ANTACID SUSP 30 ML UDC (MYLANTA) PO PRN (14:15)
[2022-10-18 14:21] VITALS: BP 111/88
--- NOTE | 2022-10-18 14:23 | History & Physical-Hospitalist ---
History of Present Illness HPI/Chief Complaint Pt is a 66yoCF with a PMH of likely COPD who presented to the ER due to shortness of breath. She reports her symptoms have been going on for about a week. She has a cough and sputum production. She was borrowing her 's oxygen because of the shortness of breath. She has been fatigued and weak and had a poor appetite as well. She was found to have pneumonia in the ER and met sepsis criteria. She is being admitting for further management. Source: patient Date Seen 10/18/22 Time Seen by a Provider: 14:19 Attending Physician No,Local Physician PCP Admitting Physician: Rony Hubbard MD Attending Physician: Rony Hubbard MD Referring Physician Date of Admission Oct 18, 2022 at 13:48 Home Medications & Allergies Home Medications Reviewed patient Home Medication Reconciliation performed by pharmacy medication reconciliations corn lab technician and/or nursing. Patients Allergies have been reviewed. 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 0.0oz. 101.161503uk; 35.00 BMI Method: General Appearance: No Apparent Distress, Obese Respiratory: Decreased Breath Sounds; No Rhonci, No Wheezing Cardiovascular: Regular Rate, Rhythm, No Murmur Gastrointestinal: Normal Bowel Sounds, Soft Neurologic/Psychiatric: Alert, Oriented x3, Normal Mood/Affect Results Results/Procedures Labs Laboratory Tests 10/18/22 11:55 Patient resulted labs reviewed. Imaging: Reviewed Imaging Report Imaging [facility] [place], [place] NAME: DEB MARTIN [facility] REC#: [id number] PT STATUS: REG ER : 1955 PHYSICIAN: CALVIN COLON MD ADMIT DATE: 10/18/22/ER Signed Date of Exam:10/18/22 CHEST 1 VIEW, AP/PA ONLY EXAMINATION: Chest 1 view HISTORY: SOB/hypoxia COMPARISON: 04/30/2021 FINDINGS: Heart size and pulmonary vasculature are normal. There is a small right pleural effusion. There are patchy airspace opacities within the right midlung and lung base. Mild background interstitial opacities within the lower lungs. No pneumothorax. The osseous structures are intact. IMPRESSION: 1. Patchy interstitial airspace opacities within the mid and lower lungs which can be seen with pneumonia or pulmonary edema. 2. Small right pleural effusion. Dictated by: Dictated on workstation # [id number] Dict: 10/18/22 1224 Trans: 10/18/22 1246 [facility] [id number] Interpreted by: NILSA DUQUE DO Electronically signed by: NILSA DUQUE DO 10/18/22 1246 Assessment/Plan Admission Diagnosis Severe Sepsis Admission Status: Inpatient Order (span 2 midnights) Reason for Inpatient Admission: see below Assessment and Plan Severe Sepsis- POA Acute hypoxic Respiratory failure Pneumonia Presumed COPD Continue IV abx Await cultures MAT protocol Wean oxygen as able Continue home inhalers DVT ppx: Lovenox Diagnosis/Problems Diagnosis/Problems (1) Pneumonia Qualifiers: Pneumonia type: due to unspecified organism Laterality: bilateral Lung location: lower lobe of lung Qualified Codes: J18.9 - Pneumonia, unspecified organism (2) COPD (chronic obstructive pulmonary disease) Status: Acute Qualifiers: COPD type: unspecified COPD Qualified Codes: J44.9 - Chronic obstructive pulmonary disease, unspecified (3) Sepsis Qualifiers: Sepsis type: sepsis due to unspecified organism Sepsis acute organ dysfunction status: with acute organ dysfunction Severe sepsis acute organ dysfunction type: acute respiratory failure Acute respiratory failure type: with hypoxia Severe sepsis shock status: without septic shock Qualified Codes: A41.9 - Sepsis, unspecified organism; R65.20 - Severe sepsis without septic shock; J96.01 - Acute respiratory failure with hypoxia (4) Acute respiratory failure Qualifiers: Respiratory failure complication: hypoxia Qualified Codes: J96.01 - Acute respiratory failure with hypoxia Clinical Quality Measures Smoking Cessation Counseling: Counseling-Symptomatic: 3-10 Minutes RONY HUBBARD MD Oct 18, 2022 14:23
[2022-10-18] MEDS ORDERED: VANCOMYCIN 750 MG/NS 250 ML IVPB IV NR ×2 (14:30)
[2022-10-18] MEDS: NS IV 1000 ML 1,000 ML IV SCH (14:41)
[2022-10-18] MEDS: RT-ALBUTEROL/IPRATROPIUM 3 ML (DUONEB) VIAL INH PRN (14:43)
[2022-10-18 15:00] VITALS: BP 116/86
[2022-10-18] MEDS ORDERED: ASPI-999 PO (15:08)
[2022-10-18] MEDS ORDERED: OMEG100032 PO (15:08)
[2022-10-18] MEDS ORDERED: CYCL1DRO OU (15:08)
[2022-10-18 15:50] VITALS: BP 113/87
[2022-10-18 16:00] VITALS: BP 119/76
[2022-10-18] MEDS: CEFEPIME INJECTION 1,000 MG in NS (IVPB) 50 ML IV SCH (17:51)
[2022-10-18] MEDS: RT-ALBUTEROL/IPRATROPIUM 3 ML (DUONEB) VIAL INH SCH ×2 (18:26→22:05)
[2022-10-18 20:00] VITALS: BP 94/65
[2022-10-18] MEDS: MELATONIN 3 MG TABLET PO PRN (20:41)
[2022-10-19] VITALS: BP 118/89
[2022-10-19] MEDS: CEFEPIME INJECTION 1,000 MG in NS (IVPB) 50 ML IV SCH ×4 (00:38→20:47)
[2022-10-19] MEDS: RT-ALBUTEROL/IPRATROPIUM 3 ML (DUONEB) VIAL INH PRN (00:46)
[2022-10-19] MEDS: NS IV 1000 ML 1,000 ML IV SCH ×3 (01:30→12:58)
[2022-10-19] MEDS: VANCOMYCIN 1250 MG/NS 250 ML PREMIX IV SCH ×2 (01:31→12:58)
[2022-10-19] MEDS: RT-ALBUTEROL/IPRATROPIUM 3 ML (DUONEB) VIAL INH SCH ×6 (02:51→22:08)
[2022-10-19 04:00] VITALS: BP 104/78
[2022-10-19 04:42] LABS: BASOPHILS # (AUTO) 0.1 10^3/uL (0.0-0.1); BASOPHILS % (AUTO) 0 % (0-10); EOSINOPHILS % (AUTO) 0 % (0-10); HEMATOCRIT 30 % (35-52); HEMOGLOBIN 9.8 g/dL (11.5-16.0); LYMPHOCYTES # (AUTO) 2.4 10^3/uL (1.0-4.0); LYMPHOCYTES % (AUTO) 20 % (12-44); MEAN CORPUSCULAR HEMOGLOBIN 30 pg (25-34); MEAN CORPUSCULAR HGB CONC 32 g/dL (32-36); MEAN CORPUSCULAR VOLUME 93 fL (80-99); MEAN PLATELET VOLUME 9.2 fL (9.0-12.2); MONOCYTES # (AUTO) 1.1 10^3/uL (0.0-1.0); MONOCYTES % (AUTO) 9 % (0-12); NEUTROPHILS # (AUTO) 7.9 10^3/uL (1.8-7.8); NEUTROPHILS % (AUTO) 67 % (42-75); PLATELET COUNT 318 10^3/uL (130-400); WHITE BLOOD COUNT 11.8 10^3/uL (4.3-11.0)
[2022-10-19 05:08] LABS: ALBUMIN 2.7 GM/DL (3.2-4.5); BILIRUBIN,TOTAL 0.3 MG/DL (0.1-1.0); CALCIUM 8.2 MG/DL (8.5-10.1); CREATININE SERUM 0.59 MG/DL (0.60-1.30); POTASSIUM 3.2 MMOL/L (3.6-5.0); TOTAL PROTEIN 5.1 GM/DL (6.4-8.2)
[2022-10-19 07:47] VITALS: BP 107/75
[2022-10-19] MEDS ORDERED: ACETAMINOPHEN 500 MG TAB (TYLENOL) PO PRN (08:15)
--- NOTE | 2022-10-19 08:18 | Progress Note - Hospitalist ---
Subjective HPI/CC On Admission Date Seen by Provider: Oct 19, 2022 Pt is a 66yoCF with a PMH of likely COPD who presented to the ER due to shortness of breath. She reports her symptoms have been going on for about a week. She has a cough and sputum production. She was borrowing her 's oxygen because of the shortness of breath. She has been fatigued and weak and had a poor appetite as well. She was found to have pneumonia in the ER and met sepsis criteria. She is being admitting for further management. Subjective/Events-last exam Pt reports doing ok today. Still having pain around her right ribs. Denies need for pain meds though. RN reports that overnight she became tachycardiac and concern for a flutter. EKG read as sinus tch and V1 and V2 have apparaent p waves but rhythm strip does look like flutter. Pt denies any history of atrial fib/flutter. Focused Exam Lactate Level 10/18/22 11:55: Lactic Acid Level 2.29*H 10/18/22 14:28: Lactic Acid Level 1.21 Time of Focused Exam: 12:25 Objective Exam Vital Signs Vital Signs Date Time Temp Pulse Resp B/P (MAP) Pulse Ox O2 Delivery O2 Flow Rate FiO2 10/19/22 07:47 36.4 120 20 107/75 (86) 97 Nasal Cannula 4.00 Capillary Refill : Less Than 3 Seconds General Appearance: No Apparent Distress, Obese Respiratory: Lungs Clear, No Accessory Muscle Use; No Crackles; Other (on 5lpm) Cardiovascular: Tachycardia (regular rhythm) Gastrointestinal: Normal Bowel Sounds, Soft Neurologic/Psychiatric: Alert, Oriented x3 Results/Procedures Lab Laboratory Tests 10/18/22 11:55 10/19/22 04:24 Patient resulted labs reviewed. Imaging: Reviewed Imaging Report Assessment/Plan Assessment and Plan Assess & Plan/Chief Complaint Severe Sepsis- POA Acute hypoxic Respiratory failure Pneumonia Presumed COPD Continue IV abx Leukocytosis improved Await cultures MAT protocol Wean oxygen as able Continue home inhalers Tachycardia Unclear if atrial flutter Cardiology consulted, appreciate recs Spoke with Dr Monk Tobacco abuse Hasn't smoked in 1 week Plans to quit, encouraged cessation DVT ppx: Lovenox Diagnosis/Problems Diagnosis/Problems (1) Pneumonia Qualifiers: Pneumonia type: due to unspecified organism Laterality: bilateral Lung location: lower lobe of lung Qualified Codes: J18.9 - Pneumonia, unspecified organism (2) COPD (chronic obstructive pulmonary disease) Status: Acute Qualifiers: COPD type: unspecified COPD Qualified Codes: J44.9 - Chronic obstructive pulmonary disease, unspecified (3) Sepsis Qualifiers: Sepsis type: sepsis due to unspecified organism Sepsis acute organ dysfunction status: with acute organ dysfunction Severe sepsis acute organ dysfunction type: acute respiratory failure Acute respiratory failure type: with hypoxia Severe sepsis shock status: without septic shock Qualified Codes: A41.9 - Sepsis, unspecified organism; R65.20 - Severe sepsis without septic shock; J96.01 - Acute respiratory failure with hypoxia (4) Acute respiratory failure Qualifiers: Respiratory failure complication: hypoxia Qualified Codes: J96.01 - Acute respiratory failure with hypoxia Clinical Quality Measures Smoking Cessation Counseling: Counseling-Symptomatic: 3-10 Minutes RONY ANTOINE MD Oct 19, 2022 08:18
[2022-10-19] MEDS: KETOROLAC 15 MG/ML VIAL IVP PRN (08:25)
[2022-10-19] MEDS: LIDOCAINE 4% (SALONPAS) PATCH TOP SCH (08:29)
[2022-10-19 11:29] VITALS: BP 110/77
--- NOTE | 2022-10-19 14:17 | Physical Therapy Evaluation ---
PT Evaluation-General Medical Diagnosis Admission Date Oct 18, 2022 at 13:48 Medical Diagnosis: COPD Onset Date: Oct 18, 2022 Therapy Diagnosis Therapy Diagnosis: Gait deficit, strength deficit Height/Weight Height (Feet): 5 Height (Inches): 5.00 Weight (Pounds): 223 Weight (Ounces): 0.0 Precautions Precautions/Isolations: Fall Prevention, Standard Precautions Weight Bear Status Right Lower Extremity: Right Full Weight Bearing Left Lower Extremity: Left Full Weight Bearing Referral Physician: Dr. Hubbard Reason for Referral: Evaluation/Treatment Medical History Reviewed History: Yes Social History Home: Multilevel Current Living Status: Spouse Entry Into Home: Stairs With Railing PT Steps Into Home: 3 PT Steps Inside Home: 15 Prior Prior Level of Function SCALE: Activities may be completed with or without assistive devices. 6-Hscfvnywxj-tvjxkjk completes the activity by him/herself with no assistance from a helper. 5-Set-up or Clean-up Assistance-helper sets up or cleans up; patient completes activity. Charlton assists only prior to or following the activity. 4-Supervision or Touching Assistance-helper provides verbal cues and/or touching/steadying and/or contact guard assistance as patient completes a ctivity. Assistance may be provided throughout the activity or intermittently. 3-Partial/Moderate Assistance-helper does LESS THAN HALF the effort. Charlton lifts, holds or supports trunk or limbs, but provides less than half the effort. 2-Substantial/Maximal Assistance-helper does MORE THAN HALF the effort. Charlton lifts or holds trunk or limbs and provides more than half the effort. 7-Qhulgipjj-hjnzuo does ALL the effort. Patient does none of the effort to complete the activity. Or, the assistance of 2 or more helpers is required for the patient to complete the activity. If activity was not attempted, code reason: 7-Patient Refused. 9-Not Applicable-not attempted and the patient did not perform the activity before the current illness, exacerbation or injury. 10-Not Attempted due to Environmental Limitations-(lack of equipment, weather restraints, etc.). 88-Not Attempted due to Medical Conditions or Safety Concerns. Bed Mobility: 6 Transfers (B,C,W/C): 6 Gait: 6 Stairs: 6 Indoor Mobility (Ambulation): Independent Stairs: Independent Prior Devices Use: None PT Evaluation-Current Subjective Patient lying supine in bed upon PT arrival, agreeable to treatment. Patient rates 0/10. Objective Patient Orientation: Person, Place, Time, Situation Attachments: Oxygen, IV ROM/Strength ROM Lower Extremities WFLs BLEs all planes Strength Lower Extremities 4-/5 BLEs all planes Sensory Vision: Functional Hearing: Functional Sensation Right Lower Extremit: Intact Sensation Left Lower Extremity: Intact Transfers Roll Left to Right (QC): 4 Sit to Lying (QC): 4 Lying to Sitting/Side of Bed(Q: 4 Sit to Stand (QC): 4 Chair/Bhd-po-Dxmfr Xfer(QC): 4 Toilet Transfer (QC): 4 Gait Does the Patient Walk?: Yes Mode of Locomotion: Walk Anticipated Mode of Locomotion: Walk Walk 10 feet (QC): 4 Walk 50 ft with 2 Turns(QC): 4 Walk 150 ft (QC): 4 Distance: 350' Gait Assistive Device: None Balance Sitting Static: Normal Sitting Dynamic: Normal Standing Static: Good Standing Dynamic: Fair Assessment/Needs Patient tolerated evaluation well. Only requires PT assistance for IV. Patient performs all bed mobility and transfers with SBA for O2 and IV. Patient ambulates 350 feet with no AD, with SBA and verbal cues for safety, conservation of energy and breathing. Patient becomes very short of breath the last 30 feet from her room. Upon applying the pulse oximeter, Patient O2 sats at 82%. Patient O2 increased from 3 L to 5 L and O2 increased to 94% within 3 minutes. Nurse notified. Patient in bed post treatment with all needs met, nursing notified, call light in hand and family in the room. 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 Operator Goals PT Reducing Machine Operator Goals Time Frame: Dec 01, 2022 Roll Left & Right (QC): 6 Sit to Lying (QC): 6 Lying-Sitting on Side/Bed(QC): 6 Sit to Stand (QC): 6 Chair/Rci-pl-Onglo Xfer(QC): 6 Toilet Transfer (QC): 6 Does the Patient Walk: Yes Walk 10 feet (QC): 6 Walk 50ft with 2 Turns (QC): 6 Walk 150 ft (QC): 6 1 Step (curb) (QC): 6 4 Steps (QC): 6 12 Steps (QC): 6 PT Plan Problem List Problem List: Activity Tolerance, Functional Strength, Safety, Balance, Gait, Transfer, Bed Mobility, ROM Treatment/Plan Treatment Plan: Continue Plan of Care Treatment Plan: Bed Mobility, Education, Functional Activity [place], Functional Strength, Group Therapy, Gait, Safety, Therapeutic Exercise, Transfers Treatment Duration: Dec 01, 2022 Frequency: 6 times per week Estimated Hrs Per Day: .25 hour per day Safety Risks/Education Patient Education: Gait Training, Transfer Techniques Teaching Recipient: Patient Teaching Methods: Demonstration, Discussion Response to Teaching: Verbalize Understanding, Return Demonstration Time Time In: 1330 Time Out: 1355 DATE: Oct 19, 2022 Total Billed Treatment Time: 25 Total Billed Treatment Visit, KAREN, GREGG BULLOCK PT Oct 19, 2022 14:17
[2022-10-19] MEDS: APIXABAN 5 MG (ELIQUIS) TABLET PO SCH ×2 (15:49→20:47)
[2022-10-19] MEDS: dilTIAZem DRIP PRE-MIX 125 ML IV SCH (16:09)
[2022-10-19] MEDS ORDERED: RT-LEVALBUTEROL (XOPENEX) 1.25 MG/3 ML NEB NON-FORMULARY INH PRN (16:45)
[2022-10-19] MEDS ORDERED: POTASSIUM CL 10MEQ/50ML IVPB 50 ML IV SCH (16:45)
--- NOTE | 2022-10-19 16:50 | Tele-ICU Consult ---
History of Present Illness History of Present Illness Date Seen by Provider: Oct 19, 2022 Time Seen by Provider: 16:49 Date of Admission History of Present Illness (Tele-ICU Physician , consultation as per request of PCP Service provided via interactive audio and video telecommunications E-CARE system to a patient admitted to ICU bed in [facility]. Available chart/ vitals / labs / Images reviewed H&P is from ER notes Patient's information available about PMH, Shx, Fhx allergy reviewed inEMR. ROS as per chart and RN report Now in ICU, hemodynamically stable Video assessment done using teleICU camera, rest of exam as per RN Discussed with RN. Hospital course: 10/18 admitted with SOB , TX for PNA/sepsis and AECOPD 10/19 - arrhythmias ( ? 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 Discussed with RN to reach out if any questions or concerns A total of _20 minutes of critical care time was devoted to this patient today, required to treat and/or prevent further deterioration of critical care c ondition ( as above ) . I am remotely monitoring this patient from another state. I am unable to do the bedside exam, and history/physical and pertinent information is taken from other notes in the computer and bedside staff. . Allergies and Home Medications Allergies Coded Allergies: No Known Drug Allergies (Unverified , 04/26/13) Home Medications Aspirin 81 Mg Tab.chew, 81 MG PO DAILY, (Reported) Cyclosporine 0.05 % Droperette, 1 DROP OU BID, (Reported) [place]-3/Dha/Epa/Fish Oil 1,000 Mg (120 Mg-180 Mg) Capsule, 2 EA PO BID, (Repor sonny) Past Medical/Social/Family Hx Patient Social History Marrital Status: Tobacco Use?: Yes Tobacco type used: Cigarettes Smoking Status: Current Everyday Smoker Smokeless Tobacco Frequency: Never a User Use of E-Cig and/or Vaping dev: No Substance use?: Yes Substance type: Marijuana Substance frequency: Once in a while Alcohol Use?: Yes Alcohol type: Beer, Hard Liquor Alcohol Frequency: Once in a while Pt stated abuse/neglect: No Immunizations Up To Date Influenza Vaccine Up-to-Date: No; Not Current Date of Pneumonia Vaccine: May 06, 2006 Current Status status: No Advance Directives: No Communicates: Verbally Primary Language: Latvian Preferred Spoken Language: Latvian Is interpretation needed?: No Review of Systems Constitutional: see HPI Focused Exam Lactate Level 10/18/22 11:55: Lactic Acid Level 2.29*H 10/18/22 14:28: Lactic Acid Level 1.21 Height, Weight, BMI Height: 5'5.00" Weight: 223lbs. 0.0oz. [id number]; 35.84 BMI Method: Time of Focused Exam: 12:25 Exam Exam Patient acknowledged, consented, and participated in this virtual visit which was conducted using real time audio/video Vital Signs Date Time Temp Pulse Resp B/P (MAP) Pulse Ox O2 Delivery O2 Flow Rate FiO2 10/19/22 16:09 124 93/75 10/19/22 14:36 Nasal Cannula 2.00 10/19/22 14:30 95 Nasal Cannula 3.00 10/19/22 13:00 121 10/19/22 11:29 37.0 115 20 110/77 (88) 94 Nasal Cannula 3.00 10/19/22 10:53 94 Nasal Cannula 3.00 10/19/22 10:48 97 Nasal Cannula 4.00 10/19/22 08:00 94 Nasal Cannula 5.00 10/19/22 07:47 36.4 120 20 107/75 (86) 97 Nasal Cannula 4.00 10/19/22 07:01 Nasal Cannula 4.00 10/19/22 07:00 126 10/19/22 06:53 96 Nasal Cannula 5.00 10/19/22 04:00 114 26 104/78 (87) 95 Nasal Cannula 5.00 10/19/22 01:00 123 10/19/22 00:46 96 Nasal Cannula 5.00 10/19/22 00:00 85 28 118/89 (99) 98 Nasal Cannula 5.00 10/19/22 00:00 36.8 Nasal Cannula 5.00 10/18/22 20:00 126 32 94/65 (75) 94 Nasal Cannula 5.00 10/18/22 19:23 93 Nasal Cannula 5.00 10/18/22 19:18 37.5 Nasal Cannula 5.00 10/18/22 19:00 127 10/18/22 18:26 94 Nasal Cannula 5.00 I & O 10/19/22 07:00 Intake Total 2810 ml Balance 2810 ml Height & Weight Height: 5'5.00" Weight: 223lbs. 0.0oz. 101.162598fb; 35.84 BMI Method: General Appearance: No Apparent Distress, Obese, Other HEENT: PERRL/EOMI, Other (Dry oral mucosa) Neck: Normal Inspection Respiratory: Lungs Clear, No Accessory Muscle Use; No Crackles; Other (on 5lpm) Cardiovascular: Tachycardia (regular rhythm) Capillary Refill: Less Than 3 Seconds Peripheral Pulses: 1+ Radial Pulses (R), 1+ Radial Pulses (L) Extremity: Normal Capillary Refill, Normal Inspection, Normal Range of Motion, Non Tender, No Calf Tenderness, Slow Capillary Refill (3 sec) Neurologic/Psychiatric: Alert, Oriented x3 Results Lab Laboratory Tests 10/18/22 11:55 10/19/22 04:24 Assessment/Plan Assessment/Plan 1 HOOD MARINA MD Oct 19, 2022 16:50
--- NOTE | 2022-10-19 16:54 | Consultation-Cardiology ---
HPI-Cardiology Cardiology Consultation: Date of Consultation 10/19/22 Date of Admission Attending Physician Cherie,Local Physician Admitting Physician Admitting Physician: Lida Hubbard MD Attending Physician: Lida Hubbard MD Consulting Physician Pebbles RINALDI MD HPI: Time Seen by a Provider: 15:00 Chief Complaint: Shortness of breath This is a 66-year-old lady who presents with shortness of breath and has been diagnosed with pneumonia. Tachycardia. Patient denies active smoking. Patient denies any significant past cardiac history. Review of Systems-Cardiology Review of Systems Constitutional: no symptoms reported Eyes: no symptoms reported Ears/Nose/Throat: no symptoms reported Respiratory: SOB with excertion Cardiovascular: palpitations Gastrointestinal: no symptoms reported Genitourinary: no symptoms reported Musculoskeletal: no symptoms reported Skin: no symptoms reported Psychiatric/Neurological: no symptoms reported Hematologic: no symptoms reported All Other Systems Reviewed Negative Unless Noted: Yes KWU-Jtduap-Uuuewf Hx Patient Social History Marrital Status: Smoking Status: Current Everyday Smoker Alcohol Use?: Yes Substance type: Marijuana Pt feels they are or have been: No Tobacco type used: Cigarettes Immunizations Up To Date Tetanus Booster (TDap): More than 5yrs Date of Pneumonia Vaccine: May 06, 2006 Date of Influenza Vaccine: Feb 03, 2013 Past Medical History PMH As described under Assessment. Allergies and Home Medications Allergies Coded Allergies: No Known Drug Allergies (Unverified , 04/26/13) Patient Home Medication List Home Medication List Reviewed: Yes Aspirin (Aspirin) 81 Mg Tab.chew, 81 MG PO DAILY, (Reported) Entered as Reported by: ELVIRA WINTER on 10/18/22 150 Last Action: Reviewed Cyclosporine (Restasis) 0.05 % Droperette, 1 DROP OU BID, (Reported) Entered as Reported by: ELVIRA WINTER on 10/18/22 150 Last Action: Reviewed [place]-3/Dha/Epa/Fish Oil (Fish Oil 1,000 mg Softgel) 1,000 Mg (120 Mg-180 Mg) Capsule, 2 EA PO BID, (Reported) Entered as Reported by: ELVIRA WINTER on 10/18/22 1508 Last Action: Reviewed Discontinued Medications Benzonatate (Tessalon Perles) 100 Mg Capsule, 200 MG PO TID Discontinued Reason: No Longer Taking Prescribed by: KAIA LEARY on 04/30/211504 Last Action: Discontinued Bupropion HCl (Wellbutrin Xl) 150 Mg Tab.er.24h, 150 MG PO DAILY, (Reported) Discontinued Reason: No Longer Taking Entered as Reported by: JASWANT RODRIGUEZ on 11/23/15925 Last Action: Discontinued Dexamethasone (Decadron) 6 Mg Tablet, 6 MG PO DAILY Discontinued Reason: No Longer Taking Prescribed by: KAIA LEARY on 04/30/211504 Last Action: Discontinued Doxycycline Hyclate (Doxycycline Hyclate) 100 Mg Tablet, 100 MG PO BID Discontinued Reason: No Longer Taking Prescribed by: KAIA LEARY on 04/30/211504 Last Action: Discontinued Hydrocodone Bit/Acetaminophen (Lortab 5 Mg Tablet) 1 Each Tablet, 1-2 EACH PO Q4H PRN for PAIN Discontinued Reason: No Longer Taking Prescribed by: MARTHA PRICE on 12/02/15 115 Last Action: Discontinued Sertraline HCl (Sertraline HCl) 100 Mg Tablet, 100 MG PO DAILY, (Reported) Discontinued Reason: No Longer Taking Entered as Reported by: JASWANT RODRIGUEZ on 11/23/15925 Last Action: Discontinued Tramadol Hcl (Tramadol Hcl) 50 Mg Tablet, 50 MG PO Q8H PRN for PAIN, (Reported) Discontinued Reason: No Longer Taking Entered as Reported by: LUPE RAMIREZ on 11/23/141941 Last Action: Discontinued Exam Vital Signs Vital Signs Date Time Temp Pulse Resp B/P (MAP) Pulse Ox O2 Delivery O2 Flow Rate FiO2 10/19/22 16:09 124 93/75 10/19/22 14:36 Nasal Cannula 2.00 10/19/22 14:30 95 10/19/22 11:29 37.0 20 Physical Exam Normal general exam. Cardiovascular exam: Tachycardia. Chest examination: Bilateral rhonchi heard. Labs Laboratory Tests Test 10/19/22 04:24 Range/Units White Blood Count 11.8 H 4.3-11.0 10^3/uL Red Blood Count 3.27 L 3.80-5.11 10^6/uL Hemoglobin 9.8 #L 11.5-16.0 g/dL Hematocrit 30 L 35-52 % Mean Corpuscular Volume 93 80-99 fL Mean Corpuscular Hemoglobin 30 25-34 pg Mean Corpuscular Hemoglobin Concent 32 32-36 g/dL Red Cell Distribution Width 14.5 10.0-14.5 % Platelet Count 318 130-400 10^3/uL Mean Platelet Volume 9.2 9.0-12.2 fL Immature Granulocyte % (Auto) 3 % Neutrophils (%) (Auto) 67 42-75 % Lymphocytes (%) (Auto) 20 12-44 % Monocytes (%) (Auto) 9 0-12 % Eosinophils (%) (Auto) 0 0-10 % Basophils (%) (Auto) 0 0-10 % Neutrophils # (Auto) 7.9 H 1.8-7.8 10^3/uL Lymphocytes # (Auto) 2.4 1.0-4.0 10^3/uL Monocytes # (Auto) 1.1 H 0.0-1.0 10^3/uL Eosinophils # (Auto) 0.0 0.0-0.3 10^3/uL Basophils # (Auto) 0.1 0.0-0.1 10^3/uL Immature Granulocyte # (Auto) 0.3 H 0.0-0.1 10^3/uL D-Dimer 2.17 H 0.00-0.49 UG/ML Sodium Level 139 135-145 MMOL/L Potassium Level 3.2 L 3.6-5.0 MMOL/L Chloride Level 108 H 98-107 MMOL/L Carbon Dioxide Level 24 21-32 MMOL/L Anion Gap 7 5-14 MMOL/L Blood Urea Nitrogen 8 7-18 MG/DL Creatinine 0.59 L 0.60-1.30 MG/DL Estimat Glomerular Filtration Rate 100 BUN/Creatinine Ratio 14 Glucose Level 110 H 70-105 MG/DL Calcium Level 8.2 L 8.5-10.1 MG/DL Corrected Calcium 9.2 8.5-10.1 MG/DL Total Bilirubin 0.3 0.1-1.0 MG/DL Aspartate Amino Transf (AST/SGOT) 14 5-34 U/L Alanine Aminotransferase (ALT/SGPT) 10 0-55 U/L Alkaline Phosphatase 65 40-136 U/L Total Protein 5.1 L 6.4-8.2 GM/DL Albumin 2.7 L 3.2-4.5 GM/DL ECG Impression ECG Initial ECG Rhythm: A Fib/Flutter A/P-Cardiology Assessment/Admission Diagnosis Typical atrial flutter, Acute respiratory failure, Pneumonia Plan Typical atrial flutter, likely due to acute respiratory failure due to pneumonia. I will give Cardizem infusion and start oral anticoagulation with Eliquis 5 mg twice daily. Will follow for the next 48 hours. Hopefully patient will be better from the pneumonia and respiratory failure perspective and once she is better from the pulmonary perspective; the chances of a successful cardioversion after transesophageal echocardiogram are better. Therefore the current plan is for rate control. Patient will very likely require typical atrial flutter ablation in the future. Pebbles RINALDI MD Oct 19, 2022 16:54
[2022-10-19] MEDS ORDERED: KCL 20 MEQ TAB (K-DUR) PO NR (17:30)
[2022-10-19] MEDS: MELATONIN 3 MG TABLET PO PRN (20:50)
[2022-10-19] MEDS: LIDOCAINE PATCH REMOVAL TP SCH (21:00)
[2022-10-19] MEDS: RT-BUDESONIDE NEBS 0.5 MG/2ML (PULMICORT) AMP INH SCH (22:08)
[2022-10-20] MEDS: NS IV 1000 ML 1,000 ML IV SCH ×2 (01:58→12:48)
[2022-10-20] MEDS: VANCOMYCIN 1250 MG/NS 250 ML PREMIX IV SCH ×2 (01:58→12:48)
[2022-10-20] MEDS: RT-ALBUTEROL/IPRATROPIUM 3 ML (DUONEB) VIAL INH SCH ×6 (02:22→22:26)
[2022-10-20] MEDS: CEFEPIME INJECTION 1,000 MG in NS (IVPB) 50 ML IV SCH ×4 (02:45→20:08)
[2022-10-20 04:12] LABS: BASOPHILS % (AUTO) 0 % (0-10); EOSINOPHILS % (AUTO) 0 % (0-10); HEMATOCRIT 32 % (35-52); HEMOGLOBIN 10.2 g/dL (11.5-16.0); LYMPHOCYTES # (AUTO) 1.9 10^3/uL (1.0-4.0); LYMPHOCYTES % (AUTO) 17 % (12-44); MEAN CORPUSCULAR HEMOGLOBIN 30 pg (25-34); MEAN CORPUSCULAR HGB CONC 32 g/dL (32-36); MEAN CORPUSCULAR VOLUME 91 fL (80-99); MEAN PLATELET VOLUME 8.8 fL (9.0-12.2); MONOCYTES # (AUTO) 0.7 10^3/uL (0.0-1.0); MONOCYTES % (AUTO) 6 % (0-12); NEUTROPHILS # (AUTO) 8.7 10^3/uL (1.8-7.8); NEUTROPHILS % (AUTO) 75 % (42-75); PLATELET COUNT 377 10^3/uL (130-400); WHITE BLOOD COUNT 11.6 10^3/uL (4.3-11.0)
[2022-10-20 04:23] LABS: ALBUMIN 2.9 GM/DL (3.2-4.5); POTASSIUM 3.4 MMOL/L (3.6-5.0)
[2022-10-20 04:24] LABS: CALCIUM 8.5 MG/DL (8.5-10.1)
[2022-10-20 04:26] LABS: TOTAL PROTEIN 5.4 GM/DL (6.4-8.2)
[2022-10-20] MEDS: dilTIAZem DRIP PRE-MIX 125 ML IV SCH ×3 (04:26→20:58)
[2022-10-20 04:27] LABS: BILIRUBIN,TOTAL 0.3 MG/DL (0.1-1.0)
[2022-10-20 04:29] LABS: CREATININE SERUM 0.52 MG/DL (0.60-1.30)
[2022-10-20] MEDS ORDERED: KCL 20 MEQ TAB (K-DUR) PO ONE (05:45)
[2022-10-20] MEDS: POTASSIUM CL 10MEQ/50ML IVPB 50 ML IV SCH (05:55)
[2022-10-20] MEDS: KCL 20 MEQ TAB (K-DUR) PO SCH (05:55)
[2022-10-20] MEDS: MAGNESIUM 1 GM/100 ML IVPB 100 ML IV SCH ×3 (06:00→07:54)
[2022-10-20] MEDS ORDERED: NS IV 500 ML 500 ML IV PRN (06:00)
[2022-10-20] MEDS: APIXABAN 5 MG (ELIQUIS) TABLET PO SCH ×2 (08:25→20:08)
[2022-10-20] MEDS: LIDOCAINE 4% (SALONPAS) PATCH TOP SCH ×2 (08:25→08:53)
[2022-10-20] MEDS: KETOROLAC 15 MG/ML VIAL IVP PRN (08:31)
--- NOTE | 2022-10-20 08:31 | Tele-ICU Progress Note ---
Progress Note 66 y/o female with COPD admitted with SOB and PNA and exaccerbation of her COPD Being treated with IV Cefepime and multiple inhalers Also has a fib now on diltiazem drip and apixaban Overall improved PE: HR: 86, now NSR BP: 117/66 IMP: COPD exaccerbation with PNA PLAN: continue antibiotics and nebs. I am remotely monitoring this patient from another state. I am unable to do the bedside exam, and history/physical and pertinent information is taken from other notes in the computer and bedside staff. Time spent in review and assessment 20 minutes. Focused Exam Lactate Level 10/18/22 11:55: Lactic Acid Level 2.29*H 10/18/22 14:28: Lactic Acid Level 1.21 Height, Weight, BMI Height: 5'5.00" Weight: 223lbs. 0.0oz. 101.516232dr; 39.88 BMI Method: Time of Focused Exam: 12:25 Labs Laboratory Tests 10/20/22 04:02 Results Results/Procedures Labs Laboratory Tests 10/18/22 11:55 10/19/22 04:24 10/20/22 04:02 Patient resulted labs reviewed. Imaging: Reviewed Imaging Report Results Labs Labs Laboratory Tests 10/20/22 04:02: White Blood Count 11.6H, Red Blood Count 3.46L, Hemoglobin 10.2L, Hematocrit 32L , Mean Corpuscular Volume 91, Mean Corpuscular Hemoglobin 30, Mean Corpuscular Hemoglobin Concent 32, Red Cell Distribution Width 14.6H, Platelet Count 377, Mean Platelet Volume 8.8L, Immature Granulocyte % (Auto) 2, Neutrophils (%) (Auto) 75, Lymphocytes (%) (Auto) 17, Monocytes (%) (Auto) 6, Eosinophils (%) (Auto) 0, Basophils (%) (Auto) 0, Neutrophils # (Auto) 8.7H, Lymphocytes # (Auto) 1.9, Monocytes # (Auto) 0.7, Eosinophils # (Auto) 0.0, Basophils # (Auto) 0.0, Immature Granulocyte # (Auto) 0.2H, Sodium Level 139, Potassium Level 3.4L, Chloride Level 109H, Carbon Dioxide Level 21, Anion Gap 9, Blood Urea Nitrogen 6L, Creatinine 0.52L, Estimat Glomerular Filtration Rate 103, BUN/Creatinine Ratio 12, Glucose Level 121H, Calcium Level 8.5, Corrected Calcium 9.4, Magnesium Level 1.8, Total Bilirubin 0.3, Aspartate Amino Transf (AST/SGOT) 18, Alanine Aminotransferase (ALT/SGPT) 13, Alkaline Phosphatase 74, Total Protein 5.4L, Albumin 2.9L Microbiology 10/18/22 Urine Culture - Final, Complete Gram Pos Mixed Bacterial Faviola No Further Testing See Comments 10/18/22 Blood Culture - Preliminary, Resulted No growth ROGER BAUER MD Oct 20, 2022 08:31
[2022-10-20] MEDS: MILK OF MAGNESIA 400 MG/5 ML 30 ML UDC PO PRN ×2 (08:38→16:02)
[2022-10-20] MEDS ORDERED: predniSONE 20 MG TAB PO NR (09:00)
[2022-10-20] MEDS: RT-BUDESONIDE NEBS 0.5 MG/2ML (PULMICORT) AMP INH SCH ×2 (09:16→22:26)
[2022-10-20] MEDS ORDERED: FLEET ENEMA ADULT 1 EA BTL PR PRN (10:15)
[2022-10-20] MEDS ORDERED: SENNA W/DOCUSATE (SENOKOT S) TABLET PO PRN (10:15)
--- NOTE | 2022-10-20 10:15 | Progress Note - Hospitalist ---
Subjective HPI/CC On Admission Date Seen by Provider: Oct 20, 2022 Pt is a 66yoCF with a PMH of likely COPD who presented to the ER due to shortness of breath. She reports her symptoms have been going on for about a week. She has a cough and sputum production. She was borrowing her 's oxygen because of the shortness of breath. She has been fatigued and weak and had a poor appetite as well. She was found to have pneumonia in the ER and met sepsis criteria. She is being admitting for further management. Subjective/Events-last exam Pt reports feeling a little better but still not well. Persistent cough. Feels bloated. Has not had a BM since admission. Focused Exam Lactate Level 10/18/22 11:55: Lactic Acid Level 2.29*H 10/18/22 14:28: Lactic Acid Level 1.21 Time of Focused Exam: 12:25 Objective Exam Vital Signs Vital Signs Date Time Temp Pulse Resp B/P (MAP) Pulse Ox O2 Delivery O2 Flow Rate FiO2 10/20/22 09:20 96 Nasal Cannula 3.00 10/20/22 09:00 86 29 109/70 (84) 10/20/22 07:25 37.0 Capillary Refill : Less Than 3 Seconds General Appearance: No Apparent Distress, WD/WN Respiratory: No Accessory Muscle Use, Wheezing (scant), Other (on 3lpm) Cardiovascular: No Murmur, Irregularly Irregular Gastrointestinal: Normal Bowel Sounds, Non Tender, Soft, Distended (mild) Neurologic/Psychiatric: Alert, Oriented x3 Results/Procedures Lab Laboratory Tests 10/20/22 04:02 Patient resulted labs reviewed. Imaging: Reviewed Imaging Report Assessment/Plan Assessment and Plan Assess & Plan/Chief Complaint Severe Sepsis- POA Acute hypoxic Respiratory failure Pneumonia Presumed COPD Continue IV abx Leukocytosis stable Adding steroids today for wheezing so anticipate WBC may increase tomorrow Negative blood cultures MAT protocol Wean oxygen as able Continue home inhalers (none actually on home meds recs) Add Anoro A flutter with RVR Cardiology consulted, appreciate recs Spoke with Dr Monk again today Plan to continue cardizem gtt today, consider cardioversion tomorrow if no converted Tobacco abuse Hasn't smoked in 1 week Plans to quit, encouraged cessation DVT ppx: Eliquis Diagnosis/Problems Diagnosis/Problems (1) Pneumonia Qualifiers: Pneumonia type: due to unspecified organism Laterality: bilateral Lung location: lower lobe of lung Qualified Codes: J18.9 - Pneumonia, unspecified organism (2) COPD (chronic obstructive pulmonary disease) Status: Acute Qualifiers: COPD type: unspecified COPD Qualified Codes: J44.9 - Chronic obstructive pulmonary disease, unspecified (3) Sepsis Qualifiers: Sepsis type: sepsis due to unspecified organism Sepsis acute organ d ysfunction status: with acute organ dysfunction Severe sepsis acute organ dys function type: acute respiratory failure Acute respiratory failure type: with hypoxia Severe sepsis shock status: without septic shock Qualified Codes: A41.9 - Sepsis, unspecified organism; R65.20 - Severe sepsis without septic shock; J96.01 - Acute respiratory failure with hypoxia (4) Acute respiratory failure Qualifiers: Respiratory failure complication: hypoxia Qualified Codes: J96.01 - Acute respiratory failure with hypoxia Clinical Quality Measures Smoking Cessation Counseling: Counseling-Symptomatic: 3-10 Minutes RONY ANTOINE MD Oct 20, 2022 10:15
--- NOTE | 2022-10-20 11:14 | Physical Therapy Progress Note ---
Therapy Progress Note Pt with transfer to ICU. PT will need new orders. TAWANA RIVERA DPT Oct 20, 2022 11:14
--- NOTE | 2022-10-20 12:45 | Cardiology Progress Note ---
Cardiology SOAP Progress Note Subjective: Feels a little better. Still short of breath. Objective: I&O/Vital Signs 10/20/22 10/20/22 10/20/22 10/20/22 01:00 01:00 02:00 02:22 Pulse 114 115 115 Resp 32 18 B/P (MAP) 107/67 (80) 128/79 (95) Pulse Ox 96 98 93 O2 Delivery Nasal Cannula Nasal Cannula Nasal Cannula O2 Flow Rate 3.00 3.00 3.00 10/20/22 10/20/22 10/20/22 10/20/22 03:00 04:00 04:00 04:26 Pulse 86 115 115 Resp 21 19 B/P (MAP) 121/79 (93) 132/74 (93) 132/74 Pulse Ox 92 91 92 O2 Delivery Nasal Cannula Nasal Cannula Nasal Cannula O2 Flow Rate 3.00 3.00 3.00 10/20/22 10/20/22 10/20/22 10/20/22 05:00 05:20 06:00 07:00 Pulse 112 84 85 Resp 13 30 32 B/P (MAP) 134/80 (98) 119/74 (89) 111/68 (83) Pulse Ox 91 95 92 93 O2 Delivery Nasal Cannula Nasal Cannula Nasal Cannula Nasal Cannula O2 Flow Rate 3.00 3.00 3.00 3.00 10/20/22 10/20/22 10/20/22 10/20/22 07:00 07:25 08:00 08:01 Temp 37.0 Pulse 87 86 Resp 29 B/P (MAP) 117/66 (85) Pulse Ox 92 O2 Delivery Nasal Cannula Nasal Cannula O2 Flow Rate 3.00 3.00 10/20/22 10/20/22 10/20/22 10/20/22 09:00 09:19 09:20 10:00 Pulse 86 126 Resp 29 27 B/P (MAP) 109/70 (84) 118/74 (82) Pulse Ox 90 96 96 O2 Delivery Nasal Cannula Nasal Cannula Nasal Cannula Nasal Cannula O2 Flow Rate 3.00 3.00 3.00 3.00 10/20/22 10/20/22 10/20/22 10/20/22 11:00 11:35 12:00 12:28 Temp 36.7 Pulse 85 101 101 Resp 28 18 B/P (MAP) 105/64 (75) 111/70 (85) 111/70 Pulse Ox 90 92 O2 Delivery Nasal Cannula Nasal Cannula O2 Flow Rate 3.00 3.00 10/20/22 00:00 Intake Total 2525 ml Balance 2525 ml Weight (Pounds): 223 Weight (Ounces): 0.0 Weight (Calculated Kilograms): 101.713332 Constitutional: AAO x 3 Respiratory: chest is bilaterally symmetric, rhonchi Cardiovascular: irregularly irregular, S1 and S2 Gastrointestional: soft Extremities: No pedal edema Neurologic/Psychiatric: no motor/sensory deficits, alert, normal mood/affect, oriented x 3 Skin: warm/dry, pallor Results/Procedures: Labs Laboratory Tests 10/20/22 04:02: White Blood Count 11.6H, Red Blood Count 3.46L, Hemoglobin 10.2L, Hematocrit 32L , Mean Corpuscular Volume 91, Mean Corpuscular Hemoglobin 30, Mean Corpuscular Hemoglobin Concent 32, Red Cell Distribution Width 14.6H, Platelet Count 377, Mean Platelet Volume 8.8L, Immature Granulocyte % (Auto) 2, Neutrophils (%) (Auto) 75, Lymphocytes (%) (Auto) 17, Monocytes (%) (Auto) 6, Eosinophils (%) (Auto) 0, Basophils (%) (Auto) 0, Neutrophils # (Auto) 8.7H, Lymphocytes # (Auto) 1.9, Monocytes # (Auto) 0.7, Eosinophils # (Auto) 0.0, Basophils # (Auto) 0.0, Immature Granulocyte # (Auto) 0.2H, Sodium Level 139, Potassium Level 3.4L, Chloride Level 109H, Carbon Dioxide Level 21, Anion Gap 9, Blood Urea Nitrogen 6L, Creatinine 0.52L, Estimat Glomerular Filtration Rate 103, BUN/Creatinine Ratio 12, Glucose Level 121H, Calcium Level 8.5, Corrected Calcium 9.4, Magnesium Level 1.8, Total Bilirubin 0.3, Aspartate Amino Transf (AST/SGOT) 18, Alanine Aminotransferase (ALT/SGPT) 13, Alkaline Phosphatase 74, Total Protein 5.4L, Albumin 2.9L Microbiology 10/18/22 Urine Culture - Final, Complete Gram Pos Mixed Bacterial Faviola No Further Testing See Comments 10/18/22 Blood Culture - Preliminary, Resulted No growth A/P: Assessment/Dx: Typical atrial flutter, Acute respiratory failure, Pneumonia COPD Plan: Typical atrial flutter, likely due to acute respiratory failure due to pneumonia. Patient is still hypoxic. When I was in the room on oxygen her oxygen saturation was 89%. She does share with me that she smoked a lot in the past and was told that she may have COPD. It is very likely that she has COPD and pneumonia. We will continue IV Cardizem for now. Her heart rate is much better controlled. We will delay transesophageal echocardiogram assisted cardioversion to likely on Saturday (day after tomorrow). Continue oral anticoagulation. Patient understands Focused Exam Lactate Level 10/18/22 11:55: Lactic Acid Level 2.29*H 10/18/22 14:28: Lactic Acid Level 1.21 Time of Focused Exam: 12:25 Clinical Quality Measures Smoking Cessation Counseling: Counseling-Symptomatic: 3-10 Minutes Pebbles RINALDI MD Oct 20, 2022 12:45
[2022-10-20] MEDS: UMECLIDINIUM IH SCH (14:47)
[2022-10-20] MEDS: VILANTEROL IH SCH (14:47)
[2022-10-20] MEDS: MELATONIN 3 MG TABLET PO PRN (20:08)
[2022-10-20] MEDS: HYDROcodone/APAP 5 MG/325 MG (LORTAB) TAB PO PRN ×2 (20:09→20:39)
[2022-10-20] MEDS: LIDOCAINE PATCH REMOVAL TP SCH (21:00)
[2022-10-21] MEDS: VANCOMYCIN 1250 MG/NS 250 ML PREMIX IV SCH (00:51)
[2022-10-21] MEDS: RT-ALBUTEROL/IPRATROPIUM 3 ML (DUONEB) VIAL INH SCH ×6 (02:03→21:54)
[2022-10-21] MEDS: CEFEPIME INJECTION 1,000 MG in NS (IVPB) 50 ML IV SCH ×4 (02:10→20:19)
[2022-10-21] MEDS: NS IV 1000 ML 1,000 ML IV SCH ×3 (03:04→15:07)
[2022-10-21 03:26] LABS: BASOPHILS % (AUTO) 0 % (0-10); EOSINOPHILS % (AUTO) 0 % (0-10); HEMATOCRIT 31 % (35-52); HEMOGLOBIN 10.2 g/dL (11.5-16.0); LYMPHOCYTES # (AUTO) 1.9 10^3/uL (1.0-4.0); LYMPHOCYTES % (AUTO) 12 % (12-44); MEAN CORPUSCULAR HEMOGLOBIN 30 pg (25-34); MEAN CORPUSCULAR HGB CONC 33 g/dL (32-36); MEAN CORPUSCULAR VOLUME 91 fL (80-99); MEAN PLATELET VOLUME 8.8 fL (9.0-12.2); MONOCYTES # (AUTO) 0.9 10^3/uL (0.0-1.0); MONOCYTES % (AUTO) 6 % (0-12); NEUTROPHILS # (AUTO) 12.3 10^3/uL (1.8-7.8); NEUTROPHILS % (AUTO) 81 % (42-75); PLATELET COUNT 411 10^3/uL (130-400); WHITE BLOOD COUNT 15.2 10^3/uL (4.3-11.0)
[2022-10-21 04:16] LABS: POTASSIUM 3.8 MMOL/L (3.6-5.0)
[2022-10-21 04:17] LABS: CALCIUM 8.6 MG/DL (8.5-10.1)
[2022-10-21 04:19] LABS: TOTAL PROTEIN 5.7 GM/DL (6.4-8.2)
[2022-10-21 04:20] LABS: BILIRUBIN,TOTAL 0.3 MG/DL (0.1-1.0)
[2022-10-21 04:22] LABS: CREATININE SERUM 0.56 MG/DL (0.60-1.30)
[2022-10-21 04:25] LABS: MAGNESIUM 2.3 MG/DL (1.6-2.4)
[2022-10-21] MEDS: dilTIAZem DRIP PRE-MIX 125 ML IV SCH ×2 (04:35→18:34)
[2022-10-21] MEDS ORDERED: KCL 20 MEQ TAB (K-DUR) PO ONE (05:45)
[2022-10-21] MEDS: KCL 20 MEQ TAB (K-DUR) PO SCH (06:00)
[2022-10-21] MEDS: MAGNESIUM 1 GM/100 ML IVPB 100 ML IV SCH (06:00)
[2022-10-21] MEDS: POTASSIUM CL 10MEQ/50ML IVPB 50 ML IV SCH (06:00)
[2022-10-21] MEDS: predniSONE 20 MG TAB PO SCH (06:26)
[2022-10-21] MEDS: RT-BUDESONIDE NEBS 0.5 MG/2ML (PULMICORT) AMP INH SCH ×2 (07:30→18:52)
[2022-10-21] MEDS: UMECLIDINIUM IH SCH (07:31)
[2022-10-21] MEDS: VILANTEROL IH SCH (07:31)
[2022-10-21] MEDS: APIXABAN 5 MG (ELIQUIS) TABLET PO SCH ×2 (08:58→20:19)
[2022-10-21] MEDS: LIDOCAINE 4% (SALONPAS) PATCH TOP SCH (09:02)
[2022-10-21 09:16] VITALS: BP 111/94
--- NOTE | 2022-10-21 10:21 | Tele-ICU Progress Note ---
Subjective Date Seen by a Provider: Oct 21, 2022 Time Seen by a Provider: 10:21 Subjective/Events-last exam (Tele-ICU Physician , Progress Note ) Service provided via interactive audio and video telecommunications E-CARE system to a patient admitted to ICU bed in [facility]. Patient is seen today due to persistent need of ICU care Available chart/ vitals / labs / Images reviewed Video assessment done using teleICU camera, rest of exam as per RN Discussed with RN Events overnight : Afebrile hemodynamically stable Respiratory - 3 l I/O = ? Drips: Pressors- no Hospital course: 10/18 admitted with SOB , TX for PNA/sepsis and AECOPD 10/19 - arrhythmias ( ? a fib ) - >to ICU on cardizem gtt 10/20-Adding steroids for wheezing, cardizem gtt A/P PNA , CAP - cxrt with bila infitrrates - abx started =- follow A fib RVR - cards follow - on cardizem gtt still -Echo pEF 55 % - AC with eliquis started - changed nebs to prn (xopenex AECOPD , presumed , no establish Dx of COPD BUNGHOLE BORER - as per bedside management , but will try to decrease nebs given arrhythmias , prn xopenex and add ICS nebs -10/20-Adding steroids PO for wheezing Anemia - suspect delutional with fluid resuscitation Add PPI - on steroids and full AC Lines : periph , (Central Line Necessity Reviewed) Calderón: void OG: Nutrition: po Analgesia: Anxiety/ delirium VTE Prophylaxis: eliquis Stress Ulcer Prophylaxis: ppi Plans in collaboration with bedside consultants and IM MDs. Discussed with RN to reach out if any questions or concerns A total of _15 minutes of critical care time was devoted to this patient today, required to treat and/or prevent further deterioration of critical care condition ( as above ) . I am remotely monitoring this patient from another state. I am unable to do the bedside exam, and history/physical and pertinent information is taken from other notes in the computer and bedside staff. . Sepsis Event Evaluation Height, Weight, BMI Height: 5'5.00" Weight: 223lbs. 0.0oz. 101.203986hc; 40.77 BMI Method: Focused Exam Lactate Level 10/18/22 11:55: Lactic Acid Level 2.29*H 10/18/22 14:28: Lactic Acid Level 1.21 Time of Focused Exam: 12:25 Exam Exam Patient acknowledged, consented, and participated in this virtual visit which was conducted using real time audio/video Vital Signs Date Time Temp Pulse Resp B/P (MAP) Pulse Ox O2 Delivery O2 Flow Rate FiO2 10/21/22 09:16 36.6 92 90 36 10/21/22 09:00 94 33 111/94 (100) 90 Nasal Cannula 4.00 10/21/22 08:00 98 27 127/83 (98) 88 Nasal Cannula 4.00 10/21/22 07:40 Nasal Cannula 4.00 10/21/22 07:39 Nasal Cannula 4.00 10/21/22 07:31 90 Nasal Cannula 4.00 10/21/22 07:30 36.6 Nasal Cannula 4.00 10/21/22 07:00 85 10/21/22 07:00 90 133/84 (108) 96 Nasal Cannula 4.00 10/21/22 06:00 70 27 110/73 (85) 92 Nasal Cannula 4.00 10/21/22 05:15 Nasal Cannula 4.00 10/21/22 05:00 82 27 90 Nasal Cannula 3.00 10/21/22 04:35 85 95/69 10/21/22 04:00 85 30 95/69 (78) 91 Nasal Cannula 3.00 10/21/22 04:00 92 Nasal Cannula 4.00 10/21/22 03:00 112 24 100/69 (79) 87 Nasal Cannula 3.00 10/21/22 02:03 96 Nasal Cannula 3.00 10/21/22 02:00 77 24 86/46 (59) 90 Nasal Cannula 3.00 10/21/22 01:00 89 31 107/69 (82) 90 Nasal Cannula 3.00 10/21/22 00:00 79 24 97/65 (76) 89 Nasal Cannula 3.00 10/21/22 00:00 91 Nasal Cannula 3.00 10/21/22 00:00 79 10/20/22 23:00 84 27 98/53 (68) 90 Nasal Cannula 3.00 10/20/22 22:28 94 Nasal Cannula 3.00 10/20/22 22:26 94 Nasal Cannula 3.00 10/20/22 22:00 88 27 98/55 (69) 90 Nasal Cannula 3.00 10/20/22 21:00 96 26 102/70 (81) 91 Nasal Cannula 3.00 10/20/22 20:58 90 119/66 10/20/22 20:00 93 Nasal Cannula 3.00 10/20/22 20:00 36.9 10/20/22 20:00 90 32 119/66 (83) 91 Nasal Cannula 3.00 10/20/22 19:01 98 Nasal Cannula 3.00 10/20/22 19:00 84 12 111/73 (86) 96 Nasal Cannula 3.00 10/20/22 18:59 86 10/20/22 18:00 89 36 140/79 (102) 90 Nasal Cannula 3.00 10/20/22 17:00 92 33 112/70 (88) Nasal Cannula 3.00 10/20/22 16:00 95 36 117/77 (89) 91 Nasal Cannula 3.00 10/20/22 15:48 Nasal Cannula 3.00 10/20/22 15:44 37.1 10/20/22 15:00 95 25 102/85 (91) 90 Nasal Cannula 3.00 10/20/22 14:52 96 Nasal Cannula 3.00 10/20/22 14:00 96 29 101/61 (79) 88 Nasal Cannula 3.00 10/20/22 13:00 105 22 93/85 (86) 92 Nasal Cannula 3.00 10/20/22 12:47 102 10/20/22 12:28 101 111/70 10/20/22 12:16 Nasal Cannula 3.00 10/20/22 12:00 101 18 111/70 (85) 92 Nasal Cannula 3.00 10/20/22 11:35 36.7 10/20/22 11:00 85 28 105/64 (75) 90 Nasal Cannula 3.00 I & O 10/21/22 07:00 Intake Total 4225 ml Balance 4225 ml Height & Weight Height: 5'5.00" Weight: 223lbs. 0.0oz. 101.873538oh; 40.77 BMI Method: General Appearance: No Apparent Distress, WD/WN HEENT: PERRL/EOMI, Other (Dry oral mucosa) Neck: Normal Inspection Respiratory: Crackles Cardiovascular: Tachycardia Capillary Refill: Less Than 3 Seconds Peripheral Pulses: 1+ Radial Pulses (R), 1+ Radial Pulses (L) Extremity: Normal Capillary Refill, Normal Inspection, Normal Range of Motion, Non Tender, No Calf Tenderness, Slow Capillary Refill (3 sec) Neurologic/Psychiatric: Alert, Oriented x3, No Motor/Sensory Deficits, Normal Mood/Affect Results Lab Laboratory Tests 10/20/22 04:02 10/21/22 03:02 Assessment/Plan Assessment/Plan 1 HOOD MARINA MD Oct 21, 2022 10:21
--- NOTE | 2022-10-21 10:58 | Progress Note - Hospitalist ---
Subjective HPI/CC On Admission Date Seen by Provider: Oct 21, 2022 Pt is a 66yoCF with a PMH of likely COPD who presented to the ER due to shortness of breath. She reports her symptoms have been going on for about a week. She has a cough and sputum production. She was borrowing her 's oxygen because of the shortness of breath. She has been fatigued and weak and had a poor appetite as well. She was found to have pneumonia in the ER and met sepsis criteria. She is being admitting for further management. Subjective/Events-last exam Pt reports feeling a little better today. Had a nightmare this morning though and hasn't felt right since then. Per RN HR dropped to 40 while she was asleep and having her nightmare. Pt states they had to come in and shake her awake. HR improved but she still doesn't feel right. Focused Exam Lactate Level 10/18/22 11:55: Lactic Acid Level 2.29*H 10/18/22 14:28: Lactic Acid Level 1.21 Time of Focused Exam: 12:25 Objective Exam Vital Signs Vital Signs Date Time Temp Pulse Resp B/P (MAP) Pulse Ox O2 Delivery O2 Flow Rate FiO2 10/21/22 10:00 112 31 113/82 (89) 91 Nasal Cannula 4.00 10/21/22 09:16 36.6 36 Capillary Refill : Less Than 3 Seconds General Appearance: No Apparent Distress, Chronically ill, Obese Respiratory: No Accessory Muscle Use, Wheezing (scant), Other (4lpm NC) Cardiovascular: No Murmur, Irregularly Irregular Gastrointestinal: Normal Bowel Sounds, Soft Neurologic/Psychiatric: Alert, Oriented x3 Results/Procedures Lab Laboratory Tests 10/21/22 03:02 Patient resulted labs reviewed. Imaging: Reviewed Imaging Report Assessment/Plan Assessment and Plan Assess & Plan/Chief Complaint Severe Sepsis- POA Acute hypoxic Respiratory failure Pneumonia Presumed COPD Continue IV abx Continue steroids Negative blood cultures MAT protocol Wean oxygen as able Continue Anoro A flutter with RVR Cardiology consulted, appreciate recs Still on cardizem, did become quite bradycardiac per report though Defer management to Dr Monk Tobacco abuse Hasn't smoked in 1 week Plans to quit, encouraged cessation DVT ppx: Eliquis Diagnosis/Problems Diagnosis/Problems (1) Pneumonia Qualifiers: Pneumonia type: due to unspecified organism Laterality: bilateral Lung location: lower lobe of lung Qualified Codes: J18.9 - Pneumonia, unspecified organism (2) COPD (chronic obstructive pulmonary disease) Status: Acute Qualifiers: COPD type: unspecified COPD Qualified Codes: J44.9 - Chronic obstructive pulmonary disease, unspecified (3) Sepsis Qualifiers: Sepsis type: sepsis due to unspecified organism Sepsis acute organ dysfunction status: with acute organ dysfunction Severe sepsis acute organ dysfunction type: acute respiratory failure Acute respiratory failure type: with hypoxia Severe sepsis shock status: without septic shock Qualified Codes: A41.9 - Sepsis, unspecified organism; R65.20 - Severe sepsis without septic shock; J96.01 - Acute respiratory failure with hypoxia (4) Acute respiratory failure Qualifiers: Respiratory failure complication: hypoxia Qualified Codes: J96.01 - Acute respiratory failure with hypoxia Clinical Quality Measures Smoking Cessation Counseling: Counseling-Symptomatic: 3-10 Minutes RONY ANTOINE MD Oct 21, 2022 10:58
[2022-10-21] MEDS ORDERED: BISACODYL 10 MG SUPP (DULCOLAX) PR PRN (11:00)
--- NOTE | 2022-10-21 17:43 | Cardiology Progress Note ---
Cardiology SOAP Progress Note Subjective: Improved shortness of breath Objective: I&O/Vital Signs 10/21/22 10/21/22 10/21/22 10/21/22 06:00 07:00 07:00 07:30 Temp 36.6 Pulse 70 90 85 Resp 27 B/P (MAP) 110/73 (85) 133/84 (108) Pulse Ox 92 96 O2 Delivery Nasal Cannula Nasal Cannula Nasal Cannula O2 Flow Rate 4.00 4.00 4.00 10/21/22 10/21/22 10/21/22 10/21/22 07:31 07:39 07:40 08:00 Pulse 98 Resp 27 B/P (MAP) 127/83 (98) Pulse Ox 90 88 O2 Delivery Nasal Cannula Nasal Cannula Nasal Cannula Nasal Cannula O2 Flow Rate 4.00 4.00 4.00 4.00 10/21/22 10/21/22 10/21/22 10/21/22 08:15 09:00 09:16 10:00 Temp 36.6 Pulse 94 92 112 Resp 33 31 B/P (MAP) 111/94 (100) 113/82 (89) Pulse Ox 92 90 90 91 O2 Delivery Nasal Cannula Nasal Cannula Nasal Cannula O2 Flow Rate 4.00 4.00 4.00 FiO2 36 10/21/22 10/21/22 10/21/22 10/21/22 10:56 11:00 12:00 12:00 Temp 36.7 Pulse 112 113 Resp 19 36 B/P (MAP) 105/69 (82) 101/85 (89) Pulse Ox 89 94 89 O2 Delivery Nasal Cannula Nasal Cannula Nasal Cannula O2 Flow Rate 4.00 4.00 4.00 10/21/22 10/21/22 10/21/22 10/21/22 12:15 12:37 13:00 14:00 Pulse 114 113 111 Resp 35 29 B/P (MAP) 111/93 (100) 131/89 (117) Pulse Ox 93 91 92 O2 Delivery Nasal Cannula Nasal Cannula Nasal Cannula O2 Flow Rate 4.00 4.00 4.00 10/21/22 10/21/22 10/21/22 10/21/22 14:54 15:00 15:16 16:00 Temp 37.0 Pulse 111 Resp 31 B/P (MAP) 127/108 (119) Pulse Ox 91 92 93 93 O2 Delivery Nasal Cannula Nasal Cannula Nasal Cannula Nasal Cannula O2 Flow Rate 4.00 4.00 4.00 10/21/22 10/21/22 16:00 17:00 Pulse 111 109 Resp 31 30 B/P (MAP) 90/64 (71) 105/84 (91) Pulse Ox 93 94 O2 Delivery Nasal Cannula Nasal Cannula O2 Flow Rate 4.00 4.00 10/21/22 00:00 Intake Total 1800 ml Balance 1800 ml Weight (Pounds): 223 Weight (Ounces): 0.0 Weight (Calculated Kilograms): 101.785788 Constitutional: AAO x 3 Respiratory: chest is bilaterally symmetric, rhonchi Cardiovascular: irregularly irregular, S1 and S2 Gastrointestional: soft Extremities: No pedal edema Neurologic/Psychiatric: no motor/sensory deficits, alert, normal mood/affect, oriented x 3 Skin: warm/dry, pallor Results/Procedures: Labs Laboratory Tests 10/21/22 03:02: White Blood Count 15.2H, Red Blood Count 3.36L, Hemoglobin 10.2L, Hematocrit 31L , Mean Corpuscular Volume 91, Mean Corpuscular Hemoglobin 30, Mean Corpuscular Hemoglobin Concent 33, Red Cell Distribution Width 14.6H, Platelet Count 411H, Mean Platelet Volume 8.8L, Immature Granulocyte % (Auto) 1, Neutrophils (%) (Auto) 81H, Lymphocytes (%) (Auto) 12, Monocytes (%) (Auto) 6, Eosinophils (%) ( Auto) 0, Basophils (%) (Auto) 0, Neutrophils # (Auto) 12.3H, Lymphocytes # (Auto) 1.9, Monocytes # (Auto) 0.9, Eosinophils # (Auto) 0.0, Basophils # (Auto) 0.0, Immature Granulocyte # (Auto) 0.2H, Sodium Level 139, Potassium Level 3.8, Chloride Level 111H, Carbon Dioxide Level 20L, Anion Gap 8, Blood Urea Nitrogen 8, Creatinine 0.56L, Estimat Glomerular Filtration Rate 101, BUN/Creatinine Ratio 14, Glucose Level 119H, Calcium Level 8.6, Corrected Calcium 9.4, Magnesium Level 2.3, Total Bilirubin 0.3, Aspartate Amino Transf (AST/SGOT) 38H, Alanine Aminotransferase (ALT/SGPT) 23, Alkaline Phosphatase 106, Total Protein 5.7L, Albumin 3.0L Microbiology 10/18/22 Urine Culture - Final, Complete Gram Pos Mixed Bacterial Faviola No Further Testing See Comments 10/18/22 Blood Culture - Preliminary, Resulted No growth A/P: Assessment/Dx: Typical atrial flutter, Acute respiratory failure, Pneumonia COPD Plan: Typical atrial flutter. On oral anticoagulation. Transesophageal echocardiogram assisted cardioversion tomorrow. Informed consent taken. Less than 1% risk of esophageal damage and TIA/stroke was discussed with the patient. Patient excepted all risk and would like to proceed. We will do it with anesthesia support. Patient will continue oral anticoagulation and follow as an outpatient with cardiology. Likely ablation in the future. Thank you for your consultation. Please call me if you have any questions. Mari Monk MD, FACP, FACC, FSCAI, FHRS, CCDS Interventional Cardiology Cardiac Electrophysiology Vascular Medicine and Endovascular Interventions Focused Exam Time of Focused Exam: 12:25 Clinical Quality Measures Smoking Cessation Counseling: Counseling-Symptomatic: 3-10 Minutes Pebbles MONK MD Oct 21, 2022 17:43
[2022-10-21] MEDS: LIDOCAINE PATCH REMOVAL TP SCH (20:21)
[2022-10-22] MEDS: NS IV 1000 ML 1,000 ML IV SCH (01:28)
[2022-10-22] MEDS: CEFEPIME INJECTION 1,000 MG in NS (IVPB) 50 ML IV SCH ×4 (01:28→20:08)
[2022-10-22] MEDS: RT-ALBUTEROL/IPRATROPIUM 3 ML (DUONEB) VIAL INH SCH ×6 (02:24→22:13)
[2022-10-22] MEDS: dilTIAZem DRIP PRE-MIX 125 ML IV SCH ×3 (04:15→21:09)
[2022-10-22 04:41] LABS: BASOPHILS # (AUTO) 0.1 10^3/uL (0.0-0.1); BASOPHILS % (AUTO) 0 % (0-10); EOSINOPHILS % (AUTO) 0 % (0-10); HEMATOCRIT 31 % (35-52); LYMPHOCYTES # (AUTO) 2.3 10^3/uL (1.0-4.0); LYMPHOCYTES % (AUTO) 18 % (12-44); MEAN CORPUSCULAR HEMOGLOBIN 30 pg (25-34); MEAN CORPUSCULAR HGB CONC 32 g/dL (32-36); MEAN CORPUSCULAR VOLUME 92 fL (80-99); MEAN PLATELET VOLUME 9.5 fL (9.0-12.2); MONOCYTES # (AUTO) 0.7 10^3/uL (0.0-1.0); MONOCYTES % (AUTO) 6 % (0-12); NEUTROPHILS # (AUTO) 9.5 10^3/uL (1.8-7.8); NEUTROPHILS % (AUTO) 75 % (42-75); PLATELET COUNT 430 10^3/uL (130-400); WHITE BLOOD COUNT 12.7 10^3/uL (4.3-11.0)
[2022-10-22 05:00] LABS: POTASSIUM 3.9 MMOL/L (3.6-5.0)
[2022-10-22 05:01] LABS: CALCIUM 8.5 MG/DL (8.5-10.1)
[2022-10-22 05:02] LABS: TOTAL PROTEIN 5.7 GM/DL (6.4-8.2)
[2022-10-22 05:04] LABS: BILIRUBIN,TOTAL 0.2 MG/DL (0.1-1.0)
[2022-10-22 05:06] LABS: CREATININE SERUM 0.56 MG/DL (0.60-1.30)
[2022-10-22 05:08] LABS: MAGNESIUM 2.1 MG/DL (1.6-2.4)
[2022-10-22] MEDS: MAGNESIUM 1 GM/100 ML IVPB 100 ML IV SCH (06:10)
[2022-10-22] MEDS: POTASSIUM CL 10MEQ/50ML IVPB 50 ML IV SCH ×3 (06:10→07:42)
[2022-10-22] MEDS: KCL 20 MEQ TAB (K-DUR) PO SCH (06:10)
[2022-10-22] MEDS: predniSONE 20 MG TAB PO SCH (06:11)
[2022-10-22] MEDS: RT-BUDESONIDE NEBS 0.5 MG/2ML (PULMICORT) AMP INH SCH ×2 (06:43→18:30)
[2022-10-22] MEDS: VILANTEROL IH SCH (06:44)
[2022-10-22] MEDS: UMECLIDINIUM IH SCH (06:44)
--- NOTE | 2022-10-22 07:37 | Physical Therapy Progress Note ---
Therapy Progress Note Patient transferred to ICU. PT will require new orders to resume. SHAYNA ROSAS PT Oct 22, 2022 07:37
[2022-10-22] MEDS: PANTOPRAZOLE 20 MG TABLET (PROTONIX) PO SCH (08:28)
[2022-10-22] MEDS: APIXABAN 5 MG (ELIQUIS) TABLET PO SCH ×2 (08:28→20:08)
--- NOTE | 2022-10-22 08:28 | Diagnostic Imaging Report ---
CHEST 1 VIEW, AP/PA ONLY Indication: Hypoxia Comparison: 10/18/2022 Findings: Increasing right basilar consolidations. The right pleural effusion is increased. Stable small left pleural effusions. No pneumothorax. Stable cardiac silhouette. Impression: 1. Increasing right-sided opacities are likely due to a combination of enlarging effusion as well as adjacent pulmonary consolidation. Dictated by: Dictated on workstation # [id number]
[2022-10-22] MEDS: LIDOCAINE 4% (SALONPAS) PATCH TOP SCH (08:29)
[2022-10-22] MEDS ORDERED: LIDOCAINE 2% VISCOUS 15 ML UDC PO ONE (09:00)
--- NOTE | 2022-10-22 09:06 | Tele-ICU Progress Note ---
Subjective Date Seen by a Provider: Oct 22, 2022 Time Seen by a Provider: 09:05 Subjective/Events-last exam (Tele-ICU Physician , Progress Note ) Service provided via interactive audio and video telecommunications E-CARE system to a patient admitted to ICU bed in [facility]. Patient is seen today due to persistent need of ICU care Available chart/ vitals / labs / Images reviewed Video assessment done using teleICU camera, rest of exam as per RN Discussed with RN Events overnight : Afebrile hemodynamically stable Respiratory - 4 L I/O = ? Drips: Pressors- no Hospital course: 10/18 admitted with SOB , TX for PNA/sepsis and AECOPD 10/19 - arrhythmias ( ? 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 Discussed with RN to reach out if any questions or concerns A total of _15 minutes of critical care time was devoted to this patient today, required to treat and/or prevent further deterioration of critical care condition ( as above ) . I am remotely monitoring this patient from another state. I am unable to do the bedside exam, and history/physical and pertinent information is taken from other notes in the computer and bedside staff. . Sepsis Event Evaluation Height, Weight, BMI Height: 5'5.00" Weight: 223lbs. 0.0oz. [id number]; 41.54 BMI Method: Focused Exam Time of Focused Exam: 12:25 Exam Exam Patient acknowledged, consented, and participated in this virtual visit which was conducted using real time audio/video Vital Signs Date Time Temp Pulse Resp B/P (MAP) Pulse Ox O2 Delivery O2 Flow Rate FiO2 10/22/22 08:00 94 32 109/88 (95) 91 Nasal Cannula 4.00 10/22/22 08:00 36.8 10/22/22 07:00 94 10/22/22 07:00 103 34 119/93 (102) 94 Nasal Cannula 4.00 10/22/22 06:47 Nasal Cannula 4.00 10/22/22 06:47 96 Nasal Cannula 4.00 10/22/22 06:46 96 Nasal Cannula 4.00 10/22/22 06:45 96 33 117/85 (95) 93 Nasal Cannula 4.00 10/22/22 06:30 90 19 119/78 (82) 94 Nasal Cannula 4.00 10/22/22 06:15 96 34 117/89 (104) 92 Nasal Cannula 4.00 10/22/22 06:00 96 33 105/85 (93) 92 Nasal Cannula 4.00 10/22/22 05:45 96 20 120/93 (105) 92 Nasal Cannula 4.00 10/22/22 05:30 98 29 123/85 (97) 93 Nasal Cannula 4.00 10/22/22 05:15 98 48 99/78 (84) 86 Nasal Cannula 4.00 10/22/22 05:00 82 27 116/62 (80) 93 Nasal Cannula 4.00 10/22/22 04:45 92 25 111/88 (94) 95 Nasal Cannula 4.00 10/22/22 04:30 98 28 129/79 (115) 93 Nasal Cannula 4.00 10/22/22 04:15 100 28 116/91 (98) 92 Nasal Cannula 4.00 10/22/22 04:15 93 114/80 10/22/22 04:05 94 Nasal Cannula 4.00 10/22/22 04:00 105 28 114/85 (97) 92 Nasal Cannula 4.00 10/22/22 03:45 99 16 108/80 (91) 90 Nasal Cannula 4.00 10/22/22 03:30 92 24 117/75 (85) 92 Nasal Cannula 4.00 10/22/22 03:15 76 28 120/82 (90) 90 Nasal Cannula 4.00 10/22/22 03:00 101 28 107/78 (84) 94 Nasal Cannula 4.00 10/22/22 02:45 92 27 108/72 (80) 95 Nasal Cannula 4.00 10/22/22 02:30 95 31 110/66 (80) 94 Nasal Cannula 4.00 10/22/22 02:24 96 Nasal Cannula 4.00 10/22/22 02:15 90 16 107/64 (84) 94 Nasal Cannula 4.00 10/22/22 02:00 89 11 98/67 (73) 92 Nasal Cannula 4.00 10/22/22 01:45 88 96/65 (74) 91 Nasal Cannula 4.00 10/22/22 01:15 81 24 95/64 (69) 93 Nasal Cannula 4.00 10/22/22 01:00 93 31 94/67 (74) 94 Nasal Cannula 4.00 10/22/22 01:00 95 10/22/22 00:45 83 24 104/70 (81) 93 Nasal Cannula 4.00 10/22/22 00:30 91 25 96/66 (76) 93 Nasal Cannula 4.00 10/22/22 00:15 89 24 102/75 (84) 94 Nasal Cannula 4.00 10/22/22 00:13 95 Nasal Cannula 4.00 10/22/22 00:00 97 26 146/96 (113) 91 Nasal Cannula 4.00 10/21/22 23:38 36.9 10/21/22 23:00 96 28 105/68 (80) 95 Nasal Cannula 4.00 10/21/22 22:45 90 17 89/54 (66) 92 Nasal Cannula 4.00 10/21/22 22:30 109 29 109/66 (80) 90 Nasal Cannula 4.00 10/21/22 22:15 90 23 105/73 (84) 100 Nasal Cannula 4.00 10/21/22 22:00 98 108/73 (85) 94 Nasal Cannula 4.00 10/21/22 21:54 Nasal Cannula 4.00 10/21/22 21:45 113 26 115/73 (87) 92 Nasal Cannula 4.00 10/21/22 21:30 114 40 117/78 (91) 90 Nasal Cannula 4.00 10/21/22 21:15 96 29 119/75 (90) 94 Nasal Cannula 4.00 10/21/22 21:00 93 29 113/89 (97) 99 Nasal Cannula 4.00 10/21/22 20:45 100 31 95 Nasal Cannula 4.00 10/21/22 20:30 92 32 94/74 (81) 95 Nasal Cannula 4.00 10/21/22 20:15 113 36 88/51 (63) Nasal Cannula 4.00 10/21/22 20:00 94 Nasal Cannula 4.00 10/21/22 19:09 37.1 10/21/22 19:02 105 10/21/22 19:00 114 23 98/73 (83) Nasal Cannula 4.00 10/21/22 18:54 Nasal Cannula 4.00 10/21/22 18:49 Nasal Cannula 4.00 10/21/22 18:34 109 105/84 10/21/22 18:00 114 26 152/116 (122) Nasal Cannula 4.00 10/21/22 17:00 109 30 105/84 (91) 94 Nasal Cannula 4.00 10/21/22 16:00 111 31 90/64 (71) 93 Nasal Cannula 4.00 10/21/22 16:00 93 Nasal Cannula 4.00 10/21/22 15:16 37.0 93 Nasal Cannula 10/21/22 15:00 111 31 127/108 (119) 92 Nasal Cannula 4.00 10/21/22 14:54 91 Nasal Cannula 4.00 10/21/22 14:00 111 29 131/89 (117) 92 Nasal Cannula 4.00 10/21/22 13:00 113 35 111/93 (100) 91 Nasal Cannula 4.00 10/21/22 12:37 114 10/21/22 12:15 93 Nasal Cannula 4.00 10/21/22 12:00 113 36 101/85 (89) 89 Nasal Cannula 4.00 10/21/22 12:00 36.7 10/21/22 11:00 112 19 105/69 (82) 94 Nasal Cannula 4.00 10/21/22 10:56 89 Nasal Cannula 4.00 10/21/22 10:00 112 31 113/82 (89) 91 Nasal Cannula 4.00 10/21/22 09:16 36.6 92 90 36 I & O 10/22/22 07:00 Intake Total 3585 ml Balance 3585 ml Height & Weight Height: 5'5.00" Weight: 223lbs. 0.0oz. 101.961935xb; 41.54 BMI Method: General Appearance: No Apparent Distress, Chronically ill, Obese HEENT: PERRL/EOMI, Other (Dry oral mucosa) Neck: Normal Inspection Respiratory: No Accessory Muscle Use, Wheezing (scant), Other (4lpm NC) Cardiovascular: No Murmur, Irregularly Irregular Capillary Refill: Less Than 3 Seconds Peripheral Pulses: 1+ Radial Pulses (R), 1+ Radial Pulses (L) Extremity: Normal Capillary Refill, Normal Inspection, Normal Range of Motion, Non Tender, No Calf Tenderness, Slow Capillary Refill (3 sec) Neurologic/Psychiatric: Alert, Oriented x3 Results Lab Laboratory Tests 10/21/22 03:02 10/22/22 04:06 Assessment/Plan Assessment/Plan 1 HOOD MARINA MD Oct 22, 2022 09:06
[2022-10-22] MEDS ORDERED: predniSONE 20 MG TAB PO NR ×2 (09:30)
[2022-10-22] MEDS ORDERED: MIDAZOLAM 5 MG/5 ML (VERSED) VIAL ONE (10:57)
--- NOTE | 2022-10-22 13:07 | Cardiology Progress Note ---
Cardiology SOAP Progress Note Subjective: Mild shortness of breath. Objective: I&O/Vital Signs 10/22/22 10/22/22 10/22/22 10/22/22 01:15 01:45 02:00 02:15 Pulse 81 88 89 90 Resp 24 11 16 B/P (MAP) 95/64 (69) 96/65 (74) 98/67 (73) 107/64 (84) Pulse Ox 93 91 92 94 O2 Delivery Nasal Cannula Nasal Cannula Nasal Cannula Nasal Cannula O2 Flow Rate 4.00 4.00 4.00 4.00 10/22/22 10/22/22 10/22/22 10/22/22 02:24 02:30 02:45 03:00 Pulse 95 92 101 Resp 28 B/P (MAP) 110/66 (80) 108/72 (80) 107/78 (84) Pulse Ox 96 94 95 94 O2 Delivery Nasal Cannula Nasal Cannula Nasal Cannula Nasal Cannula O2 Flow Rate 4.00 4.00 4.00 4.00 10/22/22 10/22/22 10/22/22 10/22/22 03:15 03:30 03:45 04:00 Pulse 76 92 99 105 Resp 16 28 B/P (MAP) 120/82 (90) 117/75 (85) 108/80 (91) 114/85 (97) Pulse Ox 90 92 90 92 O2 Delivery Nasal Cannula Nasal Cannula Nasal Cannula Nasal Cannula O2 Flow Rate 4.00 4.00 4.00 4.00 10/22/22 10/22/22 10/22/22 10/22/22 04:05 04:15 04:15 04:30 Pulse 93 100 98 Resp 28 B/P (MAP) 114/80 116/91 (98) 129/79 (115) Pulse Ox 94 92 93 O2 Delivery Nasal Cannula Nasal Cannula Nasal Cannula O2 Flow Rate 4.00 4.00 4.00 10/22/22 10/22/22 10/22/22 10/22/22 04:45 05:00 05:15 05:30 Pulse 92 82 98 98 Resp 48 29 B/P (MAP) 111/88 (94) 116/62 (80) 99/78 (84) 123/85 (97) Pulse Ox 95 93 86 93 O2 Delivery Nasal Cannula Nasal Cannula Nasal Cannula Nasal Cannula O2 Flow Rate 4.00 4.00 4.00 4.00 6/19/23 6/19/23 6/19/23 6/19/23 05:45 06:00 06:15 06:30 Pulse 96 96 96 90 Resp 20 33 34 19 B/P (MAP) 120/93 (105) 105/85 (93) 117/89 (104) 119/78 (82) Pulse Ox 92 92 92 94 O2 Delivery Nasal Cannula Nasal Cannula Nasal Cannula Nasal Cannula O2 Flow Rate 4.00 4.00 4.00 4.00 10/22/22 10/22/22 10/22/22 10/22/22 06:45 06:46 06:47 06:47 Pulse 96 Resp 33 B/P (MAP) 117/85 (95) Pulse Ox 93 96 96 O2 Delivery Nasal Cannula Nasal Cannula Nasal Cannula Nasal Cannula O2 Flow Rate 4.00 4.00 4.00 4.00 10/22/22 10/22/22 10/22/22 10/22/22 07:00 07:00 08:00 08:00 Temp 36.8 Pulse 103 94 94 Resp 34 32 B/P (MAP) 119/93 (102) 109/88 (95) Pulse Ox 94 91 O2 Delivery Nasal Cannula Nasal Cannula O2 Flow Rate 4.00 4.00 10/22/22 10/22/22 10/22/22 10/22/22 08:00 09:00 10:00 10:23 Pulse 108 93 Resp 26 25 B/P (MAP) 107/95 (99) 121/93 (102) Pulse Ox 93 89 92 91 O2 Delivery Nasal Cannula Nasal Cannula Nasal Cannula Nasal Cannula O2 Flow Rate 4.00 4.00 4.00 4.00 10/22/22 10/22/22 10/22/22 11:00 11:25 12:49 Temp 36.9 Pulse 102 86 Resp 34 B/P (MAP) 97/77 (84) 97/77 Pulse Ox 93 O2 Delivery Nasal Cannula O2 Flow Rate 4.00 10/22/22 00:00 Intake Total 1700 ml Balance 1700 ml Weight (Pounds): 223 Weight (Ounces): 0.0 Weight (Calculated Kilograms): 101.681701 Constitutional: AAO x 3 Respiratory: chest is bilaterally symmetric, rhonchi Cardiovascular: irregularly irregular, S1 and S2 Gastrointestional: soft Extremities: No pedal edema Neurologic/Psychiatric: no motor/sensory deficits, alert, normal mood/affect, oriented x 3 Skin: warm/dry, pallor Results/Procedures: Labs Laboratory Tests 10/22/22 04:06: White Blood Count 12.7H, Red Blood Count 3.36L, Hemoglobin 10.0L, Hematocrit 31L , Mean Corpuscular Volume 92, Mean Corpuscular Hemoglobin 30, Mean Corpuscular Hemoglobin Concent 32, Red Cell Distribution Width 14.8H, Platelet Count 430H, Mean Platelet Volume 9.5, Immature Granulocyte % (Auto) 1, Neutrophils (%) (Auto) 75, Lymphocytes (%) (Auto) 18, Monocytes (%) (Auto) 6, Eosinophils (%) (Auto) 0, Basophils (%) (Auto) 0, Neutrophils # (Auto) 9.5H, Lymphocytes # (Auto) 2.3, Monocytes # (Auto) 0.7, Eosinophils # (Auto) 0.0, Basophils # (Auto) 0.1, Immature Granulocyte # (Auto) 0.1, Sodium Level 138, Potassium Level 3.9, Chloride Level 110H, Carbon Dioxide Level 21, Anion Gap 7, Blood Urea Nitrogen 9, Creatinine 0.56L, Estimat Glomerular Filtration Rate 101, BUN/Creatinine Ratio 16, Glucose Level 99, Calcium Level 8.5, Corrected Calcium 9.3, Magnesium Level 2.1, Total Bilirubin 0.2, Aspartate Amino Transf (AST/SGOT) 32, Alanine Aminotransferase (ALT/SGPT) 25, Alkaline Phosphatase 97, Total Protein 5.7L, A lbumin 3.0L Microbiology 10/18/22 Urine Culture - Final, Complete Gram Pos Mixed Bacterial Faviola No Further Testing See Comments 10/18/22 Blood Culture - Preliminary, Resulted No growth A/P: Assessment/Dx: Typical atrial flutter, Acute respiratory failure, Pneumonia COPD Plan: Typical atrial flutter. On oral anticoagulation. Transesophageal echocardiogram assisted cardioversion Today. Informed consent taken. Less than 1% risk of esophageal damage and TIA/stroke was discussed with the patient. Patient excepted all risk and would like to proceed. We will do it with anesthesia support. Patient will continue oral anticoagulation and follow as an outpatient with cardiology. Likely ablation in the future. Acute respiratory failure, pneumonia and COPD. Patient is still hypoxic. Thank you for your consultation. Please call me if you have any questions. Mari Monk MD, FACP, FACC, FSCAI, FHRS, CCDS Interventional Cardiology Cardiac Electrophysiology Vascular Medicine and Endovascular Interventions Focused Exam Time of Focused Exam: 12:25 Clinical Quality Measures Smoking Cessation Counseling: Counseling-Symptomatic: 3-10 Minutes Pebbles MONK MD Oct 22, 2022 13:06
--- NOTE | 2022-10-22 13:10 | Cardioversion ---
Cardioversion PROCEDURE PHYSICIAN: Mari Monk MD DATE OF PROCEDURE: 10/22/22 DIRECT EXTERNAL ELECTRICAL CARDIOVERSION: Indications: Atrial Flutter with rapid ventricular rate Preoperative diagnoses: Atrial Flow with rapid ventricular rate Postoperative diagnosis: Sinus rhythm, Successful Electrical Cardioversion History: This is a 66-year-old lady who presented with acute respiratory failure due to COPD and pneumonia. She was found to be in typical atrial flutter. She was started on oral anticoagulation.Informed consent was taken for transesophageal echocardiogram assisted cardioversion. Anesthesia: By Anesthesia services Complications: None Specimen: None Contrast: 0 Flouroscopy: none Procedure Details: The patient was brought the manager labor delivery after informed consent was taken, all the risks and complications were explained including the risk of stroke. Transesophageal echocardiogram did not demonstrate any left atrium or left atrial appendage thrombus. Electrical cardioversion was carried out with anesthesia support with propofol. 200 joules of synchronized shock was deli isiah through external patches which promptly restored sinus rhythm. The patient tolerated the procedure well. Conclusions: 1.Successful Cardioversion. 2.Continue oral anticoagulation and rate controlling agent. Mari Monk MD, [facility] Cardiac Electrophysiology Pebbles MONK MD Oct 22, 2022 13:10
--- NOTE | 2022-10-22 13:58 | Anesthesia-General Post-Op ---
MAC Patient Condition Mental Status/LOC: Same as Preop Cardiovascular: Satisfactory Nausea/Vomiting: Absent Respiratory: Satisfactory Pain: Controlled Complications: Absent Post Op Complications Complications None Follow Up Care/Instructions Patient Instructions None needed. Anesthesiology Discharge Order Discharge Order Patient is doing well, no complaints, stable vital signs, no apparent adverse anesthesia problems. No complications reported per nursing. RALEIGH CHAO CRNA Oct 22, 2022 13:58
--- NOTE | 2022-10-22 15:54 | Progress Note - Hospitalist ---
Subjective HPI/CC On Admission Date Seen by Provider: Oct 22, 2022 Time Seen by Provider: 10:00 Pt is a 66yoCF with a PMH of likely COPD who presented to the ER due to shortness of breath. She reports her symptoms have been going on for about a week. She has a cough and sputum production. She was borrowing her 's oxygen because of the shortness of breath. She has been fatigued and weak and had a poor appetite as well. She was found to have pneumonia in the ER and met sepsis criteria. She is being admitting for further management. Subjective/Events-last exam She is sitting in her chair. She has no complaints. She denies chest pain. She denies shortness of breath. She did get short of breath with some activity earlier though. Focused Exam Time of Focused Exam: 12:25 Objective Exam Vital Signs Vital Signs Date Time Temp Pulse Resp B/P (MAP) Pulse Ox O2 Delivery O2 Flow Rate FiO2 10/22/22 15:33 91 Nasal Cannula 4.00 10/22/22 15:00 86 27 97/67 (77) 10/22/22 11:25 36.9 10/21/22 09:16 36 Capillary Refill : Less Than 3 Seconds General Appearance: No Apparent Distress, Obese Respiratory: No Respiratory Distress, Decreased Breath Sounds Cardiovascular: Regular Rate, Rhythm, No Murmur Gastrointestinal: Normal Bowel Sounds, Soft Extremity: Normal Inspection, No Pedal Edema Neurologic/Psychiatric: Alert, Normal Mood/Affect Skin: Normal Color, Warm/Dry Results/Procedures Lab Laboratory Tests 10/22/22 04:06 Patient resulted labs reviewed. Imaging: Reviewed Imaging Report Assessment/Plan Assessment and Plan Assess & Plan/Chief Complaint Severe Sepsis- POA Acute hypoxic Respiratory failure Pneumonia Presumed COPD Continue IV abx Continue steroids Negative blood cultures MAT protocol Continue Anoro Suppemental oxygen as needed, on 4 L Home oxygen evaluation A flutter with RVR Cardiology following Cardizem gtt GEM cardioversion today Tobacco abuse Hasn't smoked in 1 week Plans to quit, encouraged cessation DVT ppx: Eliquis Diagnosis/Problems Diagnosis/Problems (1) Atrial flutter with rapid ventricular response Status: Acute (2) Sepsis Status: Acute Qualifiers: Sepsis type: sepsis due to unspecified organism Sepsis acute organ dysfunction status: with acute organ dysfunction Severe sepsis acute organ dysfunction type: acute respiratory failure Acute respiratory failure type: with hypoxia Severe sepsis shock status: without septic shock Qualified Codes: A41.9 - Sepsis, unspecified organism; R65.20 - Severe sepsis without septic shock; J96.01 - Acute respiratory failure with hypoxia (3) Acute respiratory failure Status: Acute Qualifiers: Respiratory failure complication: hypoxia Qualified Codes: J96.01 - Acute respiratory failure with hypoxia (4) Pneumonia Status: Acute Qualifiers: Pneumonia type: due to unspecified organism Laterality: bilateral Lung l ocation: lower lobe of lung Qualified Codes: J18.9 - Pneumonia, unspecified organism (5) COPD (chronic obstructive pulmonary disease) Status: Acute Qualifiers: COPD type: unspecified COPD Qualified Codes: J44.9 - Chronic obstructive pulmonary disease, unspecified (6) Morbid obesity Status: Chronic Clinical Quality Measures Smoking Cessation Counseling: Counseling-Symptomatic: 3-10 Minutes BABAR ROSENBAUM MD Oct 22, 2022 15:54
[2022-10-22] MEDS: HYDROcodone/APAP 5 MG/325 MG (LORTAB) TAB PO PRN (17:36)
[2022-10-22] MEDS: MILK OF MAGNESIA 400 MG/5 ML 30 ML UDC PO PRN (17:36)
[2022-10-22] MEDS: LIDOCAINE PATCH REMOVAL TP SCH (20:10)
[2022-10-23] MEDS: CEFEPIME INJECTION 1,000 MG in NS (IVPB) 50 ML IV SCH ×2 (02:08→08:20)
[2022-10-23] MEDS: RT-ALBUTEROL/IPRATROPIUM 3 ML (DUONEB) VIAL INH SCH ×3 (02:25→10:39)
[2022-10-23 04:10] LABS: BASOPHILS % (AUTO) 0 % (0-10); EOSINOPHILS % (AUTO) 0 % (0-10); HEMATOCRIT 30 % (35-52); HEMOGLOBIN 9.6 g/dL (11.5-16.0); LYMPHOCYTES # (AUTO) 1.4 10^3/uL (1.0-4.0); LYMPHOCYTES % (AUTO) 11 % (12-44); MEAN CORPUSCULAR HEMOGLOBIN 30 pg (25-34); MEAN CORPUSCULAR HGB CONC 32 g/dL (32-36); MEAN CORPUSCULAR VOLUME 94 fL (80-99); MEAN PLATELET VOLUME 8.7 fL (9.0-12.2); MONOCYTES # (AUTO) 0.7 10^3/uL (0.0-1.0); MONOCYTES % (AUTO) 5 % (0-12); NEUTROPHILS # (AUTO) 10.7 10^3/uL (1.8-7.8); NEUTROPHILS % (AUTO) 83 % (42-75); PLATELET COUNT 510 10^3/uL (130-400)
[2022-10-23 04:20] LABS: ALBUMIN 3.2 GM/DL (3.2-4.5)
[2022-10-23 04:22] LABS: CALCIUM 8.8 MG/DL (8.5-10.1)
[2022-10-23 04:23] LABS: TOTAL PROTEIN 6.1 GM/DL (6.4-8.2)
[2022-10-23 04:25] LABS: BILIRUBIN,TOTAL 0.2 MG/DL (0.1-1.0)
[2022-10-23 04:26] LABS: CREATININE SERUM 0.61 MG/DL (0.60-1.30)
[2022-10-23 04:29] LABS: MAGNESIUM 2.1 MG/DL (1.6-2.4)
[2022-10-23] MEDS: POTASSIUM CL 10MEQ/50ML IVPB 50 ML IV SCH (05:16)
[2022-10-23] MEDS: KCL 20 MEQ TAB (K-DUR) PO SCH (05:17)
[2022-10-23] MEDS: MAGNESIUM 1 GM/100 ML IVPB 100 ML IV SCH (05:17)
[2022-10-23] MEDS: predniSONE 20 MG TAB PO SCH (06:15)
[2022-10-23] MEDS: dilTIAZem DRIP PRE-MIX 125 ML IV SCH (06:15)
[2022-10-23] MEDS: UMECLIDINIUM IH SCH (06:39)
[2022-10-23] MEDS: VILANTEROL IH SCH (06:39)
[2022-10-23] MEDS: RT-BUDESONIDE NEBS 0.5 MG/2ML (PULMICORT) AMP INH SCH (06:39)
--- NOTE | 2022-10-23 08:01 | Cardiology Progress Note ---
Subjective Date Seen by Provider: Oct 23, 2022 Time Seen by Provider: 07:59 Subjective/Events-last exam Patient was seen at bedside, sitting comfortably, no new complaint. Review of Systems General: No Chills, No Night Sweats, No Fatigue, No Malaise, No Appetite, No Other HEENT: No Head Aches, No Visual Changes, No Eye Pain, No Ear Pain, No Dysphasia, No Sinus Congestion, No Post Nasal Drip, No Sore Throat, No Other Pulmonary: No Dyspnea, No Cough, No Pleuritic Chest Pain, No Other Cardiovascular: No: Chest Pain, Palpitations, Orthopnea, Paroxysmal Noc. Dyspnea, Edema, Lt Headedness, Other Focused Exam Time of Focused Exam: 12:25 Objective-Cardiology Exam Last Set of Vital Signs Vital Signs 10/21/22 10/22/22 10/23/22 10/23/22 10/23/22 10/23/22 09:16 19:38 05:00 06:15 06:39 06:45 Temp 37.4 Pulse 80 Resp 26 B/P (MAP) 105/69 Pulse Ox 92 O2 Delivery Nasal Cannula O2 Flow Rate 4.00 FiO2 36 I&O Intake and Output 10/23/22 00:00 Intake Total 3235 ml Output Total 1450 ml Balance 1785 ml Intake Oral 1510 ml IV Total 1725 ml Output Urine Total 1450 ml # Voids 7 General: Alert, Oriented X3, Cooperative HEENT: Atraumatic, PERRLA Neck: Supple, No JVD, No Thyromegaly Lungs: Clear to Auscultation, Normal Air Movement Heart: Regular Rate, Normal S1, Normal S2, No Murmurs Abdomen: Normal Bowel Sounds, Soft, No Tenderness, No Hepatosplenomegaly, No Masses Extremities: No Clubbing, No Cyanosis, No Edema, Normal Pulses, No Tenderness/ Swelling Skin: No Rashes, No Breakdown, No Significant Lesion Neuro: Normal Gait, Normal Speech, Strength at 5/5 X4 Ext, Normal Tone, Sensation Intact Psych/Mental Status: Mental Status NL, Mood NL Results Lab Laboratory Tests 10/23/22 03:49 A/P-Cardiology Admission Diagnosis Typical atrial flutter Pneumonia Acute respiratory failure COPD Assessment/Plan Typical atrial flutter, status post GEM and electrical cardioversion done with Dr. Monk Currently in sinus rhythm DC Cardizem drip and start oral Cardizem Pneumonia, better at this time. Acute respiratory failure, better. Continue to monitor COPD. CARLA ARRIAGA MD Oct 23, 2022 08:01
[2022-10-23] MEDS: PANTOPRAZOLE 20 MG TABLET (PROTONIX) PO SCH (08:17)
[2022-10-23] MEDS: APIXABAN 5 MG (ELIQUIS) TABLET PO SCH (08:17)
[2022-10-23] MEDS: MILK OF MAGNESIA 400 MG/5 ML 30 ML UDC PO PRN (08:31)
[2022-10-23] MEDS: LIDOCAINE 4% (SALONPAS) PATCH TOP SCH (08:32)
--- NOTE | 2022-10-23 08:33 | Physical Therapy Evaluation ---
PT Evaluation-General Medical Diagnosis Admission Date Oct 18, 2022 at 14:07 Medical Diagnosis: COPD Onset Date: Oct 18, 2022 Therapy Diagnosis Therapy Diagnosis: debility Height/Weight Height (Feet): 5 Height (Inches): 5.00 Weight (Pounds): 223 Weight (Ounces): 0.0 Precautions Precautions/Isolations: Standard Precautions Weight Bear Status Right Lower Extremity: Right Full Weight Bearing Left Lower Extremity: Left Full Weight Bearing Referral Physician: Isai Reason for Referral: Evaluation/Treatment Medical History Pertinent Medical History: COPD Current History ER secondary to fever/cough/transfer to ICU due to A-fib Reviewed History: Yes Social History Home: Merged With [facility] Current Living Status: Spouse Entry Into Home: Stairs With Railing PT Steps Into Home: 3 PT Steps Inside Home: 15 Prior Prior Level of Function SCALE: Activities may be completed with or without assistive devices. 3-Tdyrksargq-zhexlcc completes the activity by him/herself with no assistance from a helper. 5-Set-up or Clean-up Assistance-helper sets up or cleans up; patient completes activity. [place] assists only prior to or following the activity. 4-Supervision or Touching Assistance-helper provides verbal cues and/or touching/steadying and/or contact guard assistance as patient completes activity. Assistance may be provided throughout the activity or intermittently. 3-Partial/Moderate Assistance-helper does LESS THAN HALF the effort. [place] lifts, holds or supports trunk or limbs, but provides less than half the effort. 2-Substantial/Maximal Assistance-helper does MORE THAN HALF the effort. [place] lifts or holds trunk or limbs and provides more than half the effort. 5-Bsiybupch-ruoysn does ALL the effort. Patient does none of the effort to complete the activity. Or, the assistance of 2 or more helpers is required for the patient to complete the activity. If activity was not attempted, code reason: 7-Patient Refused. 9-Not Applicable-not attempted and the patient did not perform the activity before the current illness, exacerbation or injury. 10-Not Attempted due to Environmental Limitations-(lack of equipment, weather restraints, etc.). 88-Not Attempted due to Medical Conditions or Safety Concerns. Bed Mobility: 6 Transfers (B,C,W/C): 6 Gait: 6 Stairs: 6 Indoor Mobility (Ambulation): Independent Stairs: Independent Prior Devices Use: None PT Evaluation-Current Subjective Patient agrees to PT. Per RN, patient had cardioversion yesterday and remains in sinus rhythm. Objective Patient Orientation: Normal For Age Attachments: Oxygen (4L) ROM/Strength ROM Lower Extremities bilateral LE WFL (noted edema) Strength Lower Extremities 4/5 grossly bilateral LE all planes Integumentary/Posture Bowel Incontinence: No Bladder Incontinence: No Posture WFL Neuromuscular (Tone, Coordination, Reflexes) grossly intact Sensory Vision: Functional Hearing: Functional Sensation Right Lower Extremit: Intact Sensation Left Lower Extremity: Intact Transfers Lying to Sitting/Side of Bed(Q: 6 Sit to Stand (QC): 6 Chair/Aoy-ox-Usjsk Xfer(QC): 6 Gait Mode of Locomotion: Walk Anticipated Mode of Locomotion: Walk Walk 10 feet (QC): 6 Walk 50 ft with 2 Turns(QC): 6 Walk 150 ft (QC): 6 Distance: 200' Gait Assistive Device: None Comments/Gait Description safe and functional with no deviation Balance Sitting Static: Normal Sitting Dynamic: Normal Standing Static: Normal Standing Dynamic: Normal Assessment/Needs PT assist for O2 tank only. No skilled PT indicated due to patient is at independent PLOF with all gross motor skills safely. RN present and agrees. Rehab Potential: Fair PT Halfway Goals Halfway Goals PT Halfway Goals Time Frame: Dec 01, 2022 Roll Left & Right (QC): 6 Sit to Lying (QC): 6 Lying-Sitting on Side/Bed(QC): 6 Sit to Stand (QC): 6 Chair/Atu-cd-Cisxa Xfer(QC): 6 Toilet Transfer (QC): 6 Does the Patient Walk: Yes Walk 10 feet (QC): 6 Walk 50ft with 2 Turns (QC): 6 Walk 150 ft (QC): 6 PT Plan Treatment/Plan Treatment Plan: Discontinue PT Treatment Plan: Bed Mobility, Education, Functional Activity [place], Functional Strength, Group Therapy, Gait, Safety, Therapeutic Exercise, Transfers Treatment Duration: Dec 01, 2022 Frequency: 6 times per week Estimated Hrs Per Day: .25 hour per day Time Time In: 815 Time Out: 828 DATE: Oct 23, 2022 Total Billed Treatment Time: 13 Total Billed Treatment 1 visit EVMod 13 min SHAYNA ROSAS PT Oct 23, 2022 08:33
--- NOTE | 2022-10-23 08:46 | Tele-ICU Progress Note ---
Subjective Date Seen by a Provider: Oct 23, 2022 Time Seen by a Provider: 08:45 Subjective/Events-last exam (Tele-ICU Physician , Progress Note ) Service provided via interactive audio and video telecommunications E-CARE system to a patient admitted to ICU bed in [facility]. Patient is seen today due to persistent need of ICU care Available chart/ vitals / labs / Images reviewed Video assessment done using teleICU camera, rest of exam as per RN Discussed with RN Events overnight : Afebrile hemodynamically stable Respiratory - 4 L I/O = ? Drips: Pressors- no Hospital course: 10/18 admitted with SOB , TX for PNA/sepsis and AECOPD 10/19 - arrhythmias ( ? 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 Discussed with RN to reach out if any questions or concerns A total of _15 minutes of critical care time was devoted to this patient today, required to treat and/or prevent further deterioration of critical care condition ( as above ) . I am remotely monitoring this patient from another state. I am unable to do the bedside exam, and history/physical and pertinent information is taken from other notes in the computer and bedside staff. . Sepsis Event Evaluation Height, Weight, BMI Height: 5'5.00" Weight: 223lbs. 0.0oz. [id number]; 41.24 BMI Method: Focused Exam Time of Focused Exam: 12:25 Exam Exam Patient acknowledged, consented, and participated in this virtual visit which was conducted using real time audio/video Vital Signs Date Time Temp Pulse Resp B/P (MAP) Pulse Ox O2 Delivery O2 Flow Rate FiO2 10/23/22 08:00 36.4 10/23/22 06:45 Nasal Cannula 4.00 10/23/22 06:44 Nasal Cannula 4.00 10/23/22 06:39 92 Nasal Cannula 4.00 10/23/22 06:15 80 105/69 10/23/22 06:00 76 105/69 (81) Nasal Cannula 4.00 10/23/22 05:00 71 26 129/71 (90) 93 Nasal Cannula 4.00 10/23/22 04:00 95 Nasal Cannula 4.00 10/23/22 03:30 82 26 120/73 (89) 93 Nasal Cannula 4.00 10/23/22 03:00 82 26 110/77 (88) 93 Nasal Cannula 4.00 10/23/22 02:25 93 Nasal Cannula 4.00 10/23/22 02:00 87 26 102/77 (85) 90 Nasal Cannula 4.00 10/23/22 01:52 98 10/23/22 01:00 77 102/67 (79) 93 Nasal Cannula 4.00 10/23/22 00:00 94 Nasal Cannula 4.00 10/23/22 00:00 77 103/66 (78) 93 Nasal Cannula 4.00 10/22/22 23:00 84 31 111/72 (85) 91 Nasal Cannula 4.00 10/22/22 22:14 96 Nasal Cannula 4.00 10/22/22 22:00 90 32 115/81 (92) 90 Nasal Cannula 4.00 10/22/22 21:09 91 101/69 10/22/22 21:00 92 37 101/69 (80) 90 Nasal Cannula 4.00 10/22/22 20:00 90 33 93 Nasal Cannula 4.00 10/22/22 19:59 90 Nasal Cannula 4.00 10/22/22 19:38 37.4 10/22/22 19:12 92 10/22/22 19:00 89 33 87/68 (74) 93 Nasal Cannula 4.00 10/22/22 18:32 93 Nasal Cannula 4.00 10/22/22 18:32 93 Nasal Cannula 4.00 10/22/22 18:00 92 28 110/81 (91) 92 Nasal Cannula 4.00 10/22/22 17:52 Nasal Cannula 4.00 10/22/22 17:00 90 30 128/95 (106) 95 Nasal Cannula 2.00 10/22/22 16:00 90 34 125/89 (101) 95 Nasal Cannula 4.00 10/22/22 15:33 91 Nasal Cannula 4.00 10/22/22 15:05 91 Nasal Cannula 4.00 10/22/22 15:00 86 27 97/67 (77) 94 Nasal Cannula 4.00 10/22/22 14:00 87 25 96/66 (76) 92 Nasal Cannula 4.00 10/22/22 13:00 88 10/22/22 13:00 88 25 95 Nasal Cannula 4.00 10/22/22 12:49 86 97/77 10/22/22 12:00 95 Nasal Cannula 4.00 10/22/22 12:00 90 30 105/87 (93) 95 Nasal Cannula 4.00 10/22/22 11:25 36.9 10/22/22 11:00 102 34 97/77 (84) 93 Nasal Cannula 4.00 10/22/22 10:23 91 Nasal Cannula 4.00 10/22/22 10:00 93 25 121/93 (102) 92 Nasal Cannula 4.00 10/22/22 09:00 108 26 107/95 (99) 89 Nasal Cannula 4.00 I & O 10/23/22 07:00 Intake Total 2400 ml Output Total 1450 ml Balance 950 ml Height & Weight Height: 5'5.00" Weight: 223lbs. 0.0oz. 101.516578pv; 41.24 BMI Method: General Appearance: No Apparent Distress, Obese HEENT: PERRL/EOMI, Other (Dry oral mucosa) Neck: Normal Inspection Respiratory: No Respiratory Distress, Decreased Breath Sounds Cardiovascular: Regular Rate, Rhythm, No Murmur Capillary Refill: Less Than 3 Seconds Peripheral Pulses: 1+ Radial Pulses (R), 1+ Radial Pulses (L) Extremity: Normal Inspection, No Pedal Edema Neurologic/Psychiatric: Alert, Normal Mood/Affect Skin: Normal Color, Warm/Dry Results Lab Laboratory Tests 10/22/22 04:06 10/23/22 03:49 Assessment/Plan Assessment/Plan 1 HOOD MARINA MD Oct 23, 2022 08:46
--- NOTE | 2022-10-23 09:29 | Diagnostic Imaging Report ---
Indication: Increased oxygen demand Single AP view of chest is obtained with comparison made study of 10/22/2022. Similar to the previous study, there are bilateral predominantly basilar airspace disease, greater on the right. No pneumothorax identified. No significant change is seen. IMPRESSION: Bilateral airspace disease and probable associated pleural fluid is similar to previous study. Dictated by: Dictated on workstation # [id number]
[2022-10-23] MEDS ORDERED: APIX5TAB PO (10:09)
[2022-10-23] MEDS ORDERED: CEFD300C3 PO (10:09)
[2022-10-23] MEDS ORDERED: DILT180C85 PO (10:09)
[2022-10-23] MEDS ORDERED: UMEC1BLS IH (10:10)
[2022-10-23 13:08] VITALS: BP 114/76
--- NOTE | 2022-10-23 18:52 | Discharge Summary ---
Discharge Summary Hospital Course Problems/Dx: (1) Atrial flutter with rapid ventricular response Status: Acute (2) Sepsis Status: Acute Qualifiers: Qualified Codes: A41.9 - Sepsis, unspecified organism; R65.20 - Severe sepsis without septic shock; J96.01 - Acute respiratory failure with hypoxia (3) Acute respiratory failure Status: Acute Qualifiers: Qualified Codes: J96.01 - Acute respiratory failure with hypoxia (4) Pneumonia Status: Acute Qualifiers: Qualified Codes: J18.9 - Pneumonia, unspecified organism (5) COPD (chronic obstructive pulmonary disease) Status: Acute Qualifiers: Qualified Codes: J44.9 - Chronic obstructive pulmonary disease, unspecified (6) Morbid obesity Status: Chronic Hospital Course Date of Admission: Oct 18, 2022 at 14:07 Admission Diagnosis: Severe sepsis due to pneumonia Family Physician/Provider: Arlene Crespo Physician Date of Discharge: 10/23/22 Discharge Diagnosis: Severe sepsis due to pneumonia Hospital Course: Eloise Wolfe is a 66 year old female who was admitted with severe sepsis due to pneumonia. She was treated with IV antibiotics and will complete a course of oral antibiotics as an outpatient. She also likely has underlying COPD and had a new oxygen requirement. She needed 2 L continuously and 4 L with activity. She also had new onset atrial flutter with RVR. She had a GEM cardioversion which successfully returned her to normal sinus rhythm. She was started on oral Cardizem and Eliquis. She needs to establish with a primary care physcian and was referred to Dr. Amezquita. She should also follow up with Dr. Nava, cardiology. She was discharged home in stable condition. Labs and Pending Lab Test: Laboratory Tests 10/23/22 03:49: White Blood Count 13.0H, Red Blood Count 3.25L, Hemoglobin 9.6L, Hematocrit 30L, Mean Corpuscular Volume 94, Mean Corpuscular Hemoglobin 30, Mean Corpuscular Hemoglobin Concent 32, Red Cell Distribution Width 14.6H, Platelet Count 510H, Mean Platelet Volume 8.7L, Immature Granulocyte % (Auto) 1, Neutrophils (%) (Auto) 83H, Lymphocytes (%) (Auto) 11L, Monocytes (%) (Auto) 5, Eosinophils (%) (Auto) 0, Basophils (%) (Auto) 0, Neutrophils # (Auto) 10.7H, Lymphocytes # ( Auto) 1.4, Monocytes # (Auto) 0.7, Eosinophils # (Auto) 0.0, Basophils # (Auto) 0.0, Immature Granulocyte # (Auto) 0.1, Sodium Level 138, Potassium Level 4.0, Chloride Level 106, Carbon Dioxide Level 23, Anion Gap 9, Blood Urea Nitrogen 13, Creatinine 0.61, Estimat Glomerular Filtration Rate 99, BUN/Creatinine Ratio 21, Glucose Level 120H, Calcium Level 8.8, Corrected Calcium 9.4, Magnesium Level 2.1, Total Bilirubin 0.2, Aspartate Amino Transf (AST/SGOT) 28, Alanine Aminotransferase (ALT/SGPT) 25, Alkaline Phosphatase 107, Total Protein 6.1L, Albumin 3.2 Microbiology 10/21/22 Gram Stain - Final, Complete 10/21/22 Sputum Culture - Final, Complete Usual upper respiratory gabi 10/18/22 Urine Culture - Final, Complete Gram Pos Mixed Bacterial Gabi No Further Testing See Comments 10/18/22 Blood Culture - Final, Complete No growth Home Meds Active Anoro Ellipta 62.5-25 Mcg INH (Umeclidinium Brm/Vilanterol Tr) 62.5 Mcg-25 Mcg/Actuation Blst.w.dev 1 Each IH DAILY@0800 30 Days Cefdinir 300 Mg Capsule 300 Mg PO BID 5 Days Diltiazem 24Hr ER (Diltiazem HCl) 180 Mg Cap.er.24h 180 Mg PO DAILY 30 Days Eliquis (Apixaban) 5 Mg Tablet 5 Mg PO BID 30 Days Reported Aspirin 81 Mg Tab.chew 81 Mg PO DAILY Restasis (Cyclosporine) 0.05 % Droperette 1 Drop OU BID Assessment/Pt Instructions See instructions Discharge Planning: >30 minutes discharge planning Discharge Instructions Discharge Diet: No Restrictions Activity as Tolerated: Yes Consultations Cardiology Discharge Physical Examination Vital Signs Vital Signs Date Time Temp Pulse Resp B/P (MAP) Pulse Ox O2 Delivery O2 Flow Rate FiO2 10/23/22 13:08 37.2 85 21 114/76 95 Nasal Cannula 4.00 10/21/22 09:16 36 General Appearance: No Apparent Distress, Obese HEENT: PERRL/EOMI, Pharynx Normal Respiratory: Lungs Clear, No Respiratory Distress Cardiovascular: Regular Rate, Rhythm, No Murmur Gastrointestinal: Normal Bowel Sounds, Soft Extremity: Normal Inspection, No Pedal Edema Skin: Normal Color, Warm/Dry Neurologic/Psychiatric: Alert, No Motor/Sensory Deficits, Normal Mood/Affect Allergies: Coded Allergies: No Known Drug Allergies (Unverified , 04/26/13) Copy Copies To 1: TRAN AMEZQUITA DO Discharge Summary Date of Admission Oct 18, 2022 at 14:07 Date of Discharge Oct 23, 2022 at 13:10 Discharge Date: Oct 23, 2022 Discharge Time: 13:10 Admission Diagnosis Severe Sepsis Consults/Procedures Consulations Cardiology Procedures GEM cardioversion Discharge Diagnosis Severe Sepsis Acute hypoxic Respiratory failure Pneumonia Presumed COPD A flutter with RVR Tobacco abuse (1) Atrial flutter with rapid ventricular response Status: Acute (2) Sepsis Status: Acute Qualifiers: Qualified Codes: A41.9 - Sepsis, unspecified organism; R65.20 - Severe sepsis without septic shock; J96.01 - Acute respiratory failure with hypoxia (3) Acute respiratory failure Status: Acute Qualifiers: Qualified Codes: J96.01 - Acute respiratory failure with hypoxia (4) Pneumonia Status: Acute Qualifiers: Qualified Codes: J18.9 - Pneumonia, unspecified organism (5) COPD (chronic obstructive pulmonary disease) Status: Acute Qualifiers: Qualified Codes: J44.9 - Chronic obstructive pulmonary disease, unspecified (6) Morbid obesity Status: Chronic Clinical Quality Measures Smoking Cessation Counseling: Counseling-Symptomatic: 3-10 Minutes BABAR ROSENBAUM MD Oct 23, 2022 18:48
== END 2022-10-23 13:10 | disposition home or self-care (01) | DRG 871 ==
LOC: EDUNIT# 11:28 → ER 11:30 → CSD 13:48 → OBSVTOIN 14:07 → ICU 10-19 15:16
PROVIDERS: ADMIT Family Medicine; ATTEND Internal Medicine
PROC: 5A2204Z Restoration of Cardiac Rhythm, Single (ICD-10-PCS; principal; 2022-10-22)
DX: A41.9 Sepsis, unspecified organism (principal); J18.9 Pneumonia, unspecified organism; J96.01 Acute respiratory failure with hypoxia; I48.3 Typical atrial flutter; J44.0 Chronic obstructive pulmonary disease with (acute) lower respiratory infection; J44.1 Chronic obstructive pulmonary disease with (acute) exacerbation; Z68.41 Body mass index [BMI] 40.0-44.9, adult; R65.20 Severe sepsis without septic shock; I48.91 Unspecified atrial fibrillation; F17.210 Nicotine dependence, cigarettes, uncomplicated; D64.9 Anemia, unspecified; E66.01 Morbid (severe) obesity due to excess calories; Z79.82 Long term (current) use of aspirin; Z79.899 Other long term (current) drug therapy; Z23 Encounter for immunization
CPT/HCPCS: 36415; 71045; 80053; 81000; 83605; 83735; 85007; 85025; 85027; 85379; 85610; 85730; 87040; 87070; 87088; 87205; 93005; 93306; 93312; 93320; 93325; 94640; 94760; 94761

== ENCOUNTER → 2022-11-12 | Outpatient (CLI) | payer MEDICARE ==
[~2022-11-12] MED LIST changes: +APIX5TAB PO; +ASPI-999 PO; +CATHETER FLUSH 10 ML SYR IVP PRN; +CEFD300C3 PO; +CYCL1DRO OU; +DILT180C85 PO; +OMEG100032 PO; +UMEC1BLS IH
--- NOTE | 2022-11-12 15:51 | Diagnostic Imaging Report ---
INDICATION: Initial staging solitary pulmonary nodule. TECHNIQUE: Serum blood glucose level at the time of injection was 105 mg/dL. The patient was administered 10.7 mCi of F-18 FDG intravenously in the right antecubital location and PET imaging was performed from the top of the skull to the mid thighs. A noncontrast CT was also performed for attenuation correction and anatomic correlation. COMPARISON: Outside chest CT from 11/02/2022. No prior PET/CT studies are available. FINDINGS: There is symmetric activity throughout the brain. The soft tissues of the neck are unremarkable. There is an area of consolidation versus mass in the right upper lobe that does show elevated FDG avidity with an SUV max of 7.5. There is some very low level activity within an area of consolidation in the left lower lobe with an SUV max of approximately 3. No mediastinal or hilar hypermetabolism is identified. There is a calcified granuloma in the left lung. The osseous structures are unremarkable. IMPRESSION: Abnormal area of hypermetabolism in the right upper lobe peripherally, concerning for underlying malignancy with surrounding pneumonitis. This would likely be amenable to percutaneous sampling if needed. No mediastinal or hilar hypermetabolism is identified. No other significant abnormalities are seen. Dictated by: Dictated on workstation # [id number]
== END ==
LOC: RAD 08:56
PROVIDERS: ATTEND Pediatrics
DX: R91.1 Solitary pulmonary nodule (principal); R91.8 Other nonspecific abnormal finding of lung field
CPT/HCPCS: 78815; 82947; A9552